=== PATIENT | male | born 1955 | race Caucasian/White ===

== ENCOUNTER 2021-07-04 08:53 | Emergency (ER) | payer OTHER, MEDICARE, MEDICAID ==
[~2021-07-04] VITALS: Ht 177.8 cm; Wt 150.0 kg
[~2021-07-04 08:53] MED LIST: ALBU6.7H9 INH
[2021-07-04] MEDS ORDERED: morphine 4 MG/ML inj SYRINge IM ONE (19:35)
[2021-07-04] MEDS ORDERED: ketorolac tromethamine 15mg/ml inj. IM ONE (19:35)
[2021-07-04] MEDS ORDERED: ondansetron 4mg rapidly disintigrating tab PO ONE (19:35)
[2021-07-04] MEDS ORDERED: normal saline 1000ML IV soln IVB ONE (19:55)
[2021-07-04] MEDS ORDERED: ondansetron/PF 4mg/2ml inj IV ONE (19:55)
[2021-07-04] MEDS ORDERED: HYDROcodone/acetaminophen 10/325mg tab PO ONE (20:00)
[2021-07-04] MEDS ORDERED: colchicine 0.6mg tablet PO ONE (20:00)
[2021-07-04 20:16] LABS: BASOPHILS # (AUTO) 0.1 X10'3 (0-0.2); BASOPHILS % (AUTO) 0.6 % (0-1); EOSINOPHILS # (AUTO) 0.2 X10'3 (0-0.9); EOSINOPHILS % (AUTO) 1.3 % (0-6); HEMATOCRIT 39.1 % (42.0-52.0); HEMOGLOBIN 13.2 g/dl (14.0-17.9); LYMPHOCYTES # (AUTO) 1.5 X10'3 (1.1-4.8); LYMPHOCYTES % (AUTO) 11.3 % (21-51); MEAN CORPUSCULAR HEMOGLOBIN 28.9 PG (27.0-31.0); MEAN CORPUSCULAR HGB CONC 33.9 g/dL (33.0-36.5); MEAN CORPUSCULAR VOLUME 85.4 FL (78-98); MONOCYTES % (AUTO) 7.4 % (2-12); NEUTROPHILS # (AUTO) 10.3 X10'3 (1.8-7.7); NEUTROPHILS % (AUTO) 79.4 % (42-75); PLATELET COUNT 437 X10'3 (140-440); RED BLOOD COUNT 4.58 X10'6 (4.70-6.10); RED CELL DISTRIBUTION WIDTH 13.8 % (11.5-14.5)
[2021-07-04 20:30] LABS: ALANINE AMINOTRANSFERASE 77 U/L (12-78); ALBUMIN/GLOBULIN RATIO 0.6 (1.1-1.5); ALKALINE PHOSPHATASE 99 IU/L (46-116); ANION GAP 9 (8-16); ASPARTATE AMINO TRANSFERASE 44 U/L (10-37); BILIRUBIN,TOTAL 0.9 MG/DL (0.1-1.0); BLOOD UREA NITROGEN 19 MG/DL (7-18); CALCIUM 9.1 MG/DL (8.5-10.1); CHLORIDE 106 MMOL/L (99-107); CREATININE 1.19 MG/DL (0.60-1.10); GLUCOSE 112 MG/DL (70-104); POTASSIUM 3.7 MMOL/L (3.5-5.1); SODIUM 144 MMOL/L (135-145); TOTAL CARBON DIOXIDE 29.3 MMOL/L (24-32); TOTAL PROTEIN 8.2 G/DL (6.4-8.2); eGFR 61 ML/MIN
[2021-07-04 20:44] LABS: UA COLLECTION TYPE URINAL
[2021-07-04 20:45] LABS: CLARITY,URINE SLIGHTLY CLOUDY (Clear); COLOR,URINE DARK YELLOW (Yellow); GLUCOSE, URINE NEGATIVE (Neg); KETONES,URINE NEGATIVE (Neg); LEUKOCYTE ESTERASE ,URINE NEGATIVE (Neg); NITRITES, URINE NEGATIVE (Neg); OCCULT BLOOD,URINE NEGATIVE (Neg); PROTEIN,URINE TRACE mg/dl (Neg)
[2021-07-04 20:47] LABS: HYALINE CASTS 0-3 /LPF (NEGATIVE); MUCUS STRANDS FEW /LPF (Neg); SQUAMOUS EPITHELIAL CELL,UR FEW /LPF (FEW)
[2021-07-04 20:48] LABS: BACTERIA,URINE FEW /HPF (Neg)
[2021-07-04] MEDS ORDERED: LIDOcaine 1% W/epiNEPHrine 1:200,000 10ml vial IJ ONE (21:05)
[2021-07-04] MEDS ORDERED: LIDOcaine 1% w/epiNEPHrine 1:200,000 30ml vial IJ ONE (21:10)
[2021-07-04] MEDS ORDERED: HYDR-3972 PO (22:20)
[2021-07-04 22:29] LABS: GLUCOSE,SYNOVIAL FLUID 85 MG/DL; TOTAL PROTEIN,SYNOVIAL FLUID 4.8 GM/DL
[2021-07-04 22:35] LABS: SYNOVIAL FLUID CRYSTALS QT FEW
[2021-07-04 22:36] LABS: CRYSTAL ID, SYN FLD URIC ACID
[2021-07-05 00:01] LABS: APPEARANCE,SYNOVIAL FLUID HAZY; COLOR,SYNOVIAL FLUID YELLOW; NEUTROPHILS,SYNOVIAL FLUID 76 % (0-25); SYN RBC 713 /CU MM (0); SYN WBC 3650 /CU MM (0-200)
[2021-07-05 00:02] LABS: LYMPHOCYTES,SYNOVIAL FLUID 13 % (0-75); MONOCYTES,SYNOVIAL FLUID 11 % (0-0)
[2021-07-05] MEDS ORDERED: dexamethasone sod phosphate 10mg/ml inj IV STA (06:14)
[2021-07-05 06:46] VITALS: BP 122/70
== END 2021-07-05 10:43 | disposition home or self-care (01) ==
LOC: ER 08:54
DX: M25.561 Pain in right knee (principal); M10.9 Gout, unspecified; Z79.899 Other long term (current) drug therapy
CPT/HCPCS: 20610; 36415; 73560; 73610; 80053; 81001; 82945; 84157; 85025; 85651; 86140; 87070; 87088; 89051; 89060; 96361; 96374; 99285; J1100; J7030

== ENCOUNTER 2024-07-26 13:28 | Inpatient (IN) | payer OTHER, MEDICAID ==
[~2024-07-26] VITALS: Ht 185.4 cm; Wt 180.0 kg
[2024-07-26 06:20] VITALS: BP 99/42; PULSE 82; RESP 16; TEMP 97.7; O2SAT 97
[~2024-07-26 13:28] MED LIST changes: +ALBU6.7H14 INH; -ALBU6.7H9 INH
[2024-07-26 13:57] LABS: BASOPHILS # (AUTO) 0.1 X10'3 (0-0.2); BASOPHILS % (AUTO) 0.3 % (0-1); EOSINOPHILS % (AUTO) 0.2 % (0-6); HEMATOCRIT 38.5 % (42.0-52.0); HEMOGLOBIN 12.8 g/dl (14.0-17.9); LYMPHOCYTES # (AUTO) 0.4 X10'3 (1.1-4.8); LYMPHOCYTES % (AUTO) 1.9 % (21-51); MEAN CORPUSCULAR HEMOGLOBIN 29.5 PG (27.0-31.0); MEAN CORPUSCULAR HGB CONC 33.3 g/dL (33.0-36.5); MEAN CORPUSCULAR VOLUME 88.7 FL (78-98); MEAN PLATELET VOLUME 6.9 FL (7.4-10.4); MONOCYTES # (AUTO) 0.6 X10'3 (0-0.9); MONOCYTES % (AUTO) 2.6 % (2-12); NEUTROPHILS # (AUTO) 20.4 X10'3 (1.8-7.7); PLATELET COUNT 314 X10'3 (140-440); RED BLOOD COUNT 4.34 X10'6 (4.70-6.10); RED CELL DISTRIBUTION WIDTH 14.9 % (11.5-14.5); WHITE BLOOD COUNT 21.5 X10'3 (4.5-11.0)
[2024-07-26 14:07] LABS: ALANINE AMINOTRANSFERASE 27 U/L (12-78); ALBUMIN 3.1 G/DL (3.4-5.0); ALBUMIN/GLOBULIN RATIO 0.8 (1.1-1.5); ALKALINE PHOSPHATASE 92 IU/L (46-116); ANION GAP 8 (8-16); ASPARTATE AMINO TRANSFERASE 21 U/L (10-37); BILIRUBIN,TOTAL 0.7 MG/DL (0.1-1.0); BLOOD UREA NITROGEN 20 MG/DL (7-18); BUN/CREATININE RATIO 14.7 (10.0-20.0); CALCIUM 8.1 MG/DL (8.5-10.1); CHLORIDE 106 MMOL/L (99-107); CREATININE 1.36 MG/DL (0.60-1.10); GLUCOSE 143 MG/DL (70-104); POTASSIUM 3.8 MMOL/L (3.5-5.1); SODIUM 138 MMOL/L (135-145); TOTAL CARBON DIOXIDE 24.2 MMOL/L (24-32); TOTAL PROTEIN 7.1 G/DL (6.4-8.2); eCRCL 56 ML/MIN; eGFR 52 ML/MIN
[2024-07-26 14:14] LABS: PRO BRAIN NATRIURETIC PEPTIDE 859 PG/ML (0-125)
[2024-07-26] MEDS: normal saline 1000ml 1,000 ML IV ONE (14:46)
[2024-07-26] MEDS: acetaminophen 1,000mg/100ml IV 100 ML IV ONE (14:47)
[2024-07-26 15:35] LABS: BILIRUBIN,URINE NEGATIVE (Neg); CLARITY,URINE CLEAR (Clear); COLOR,URINE YELLOW (Yellow); GLUCOSE, URINE NEGATIVE (Neg); KETONES,URINE NEGATIVE (Neg); LEUKOCYTE ESTERASE ,URINE NEGATIVE (Neg); NITRITES, URINE NEGATIVE (Neg); OCCULT BLOOD,URINE TRACE-INTACT (Neg); PH,URINE 5.5 (4.8-8.0); PROTEIN,URINE 100 mg/dl (Neg); UROBILINOGEN,URINE 0.2 E.U/dL (0.2-1.0)
[2024-07-26 15:38] LABS: URINE AMPHETAMINE SCREEN NEGATIVE (Neg); URINE BARBITUATE SCREEN NEGATIVE (Neg); URINE BENZODIAZEPINES SCREEN NEGATIVE (Neg); URINE CANNABINOID SCREEN POSITIVE (Neg); URINE COCAINE SCREEN NEGATIVE (Neg); URINE METHADONE SCREEN NEGATIVE (Neg); URINE OPIATE SCREEN NEGATIVE (Neg); URINE PHENCYCLIDINE SCREEN NEGATIVE (Neg)
[2024-07-26 15:40] LABS: UA COLLECTION TYPE OTHER
[2024-07-26 15:42] LABS: BACTERIA,URINE FEW /HPF (Neg); SQUAMOUS EPITHELIAL CELL,UR FEW /LPF (FEW); WBC,URINE 0-4 /HPF (0-4)
[2024-07-26 15:43] LABS: FINE GRANULAR CAST 0-3 /LPF (NEGATIVE); TRANSITIONAL EPI CELLS,URINE FEW /HPF
[2024-07-26] MEDS ORDERED: HYDR-3972 (15:44)
[2024-07-26] MEDS ORDERED: acetaminophen 325mg tablet PO PRN (16:20)
[2024-07-26] MEDS ORDERED: magnesium sulf-water 2g/50mL 50 ML IV PRN (16:20)
[2024-07-26] MEDS ORDERED: morphine 2 MG/ML inj. syringe IV PRN ×2 (16:20)
[2024-07-26] MEDS ORDERED: mag hydrox/Alum hydrox/simeth 30ml oral suspension PO PRN (16:20)
[2024-07-26] MEDS ORDERED: heparin 10,000 units/1 ML INJ IV ONE (16:20)
[2024-07-26] MEDS ORDERED: potassium Cl 20 mEq SR tablet PO PRN ×2 (16:20)
[2024-07-26] MEDS ORDERED: potassium Cl 40MEQ/1/2NS 520ml 520 ML IV PRN (16:20)
[2024-07-26] MEDS ORDERED: magnesium sulf-water 4G/100mL 100 ML IV PRN (16:20)
[2024-07-26] MEDS: aspirin 81mg tab.chew PO ONE (16:34)
[2024-07-26] MEDS: CefTRIAXone 2gm/D5W 50ml BAG 50 ML IV ONE (16:34)
[2024-07-26 16:37] LABS: APTT 28 SECONDS (22-32); INR 1.1 INR; PROTHROMBIN TIME 11.9 SECONDS (9.0-12.0)
[2024-07-26] MEDS: heparin 25,000 UNIT/250ml bag 250 ML IV PRN (16:47)
[2024-07-26] MEDS: heparin 10,000 units/1 ML INJ IV ONE (16:50)
[2024-07-26] MEDS: HEPARIN DRIP-CARDIAC**PHARMACIST-TO-DOSE IV ONE (17:15)
[2024-07-26] MEDS: MESSAGE TO NURSING IV ONE ×2 (17:15→22:25)
[2024-07-26] MEDS: atorvastatin 20mg tablet PO SCH (17:21)
[2024-07-26] MEDS ORDERED: metoprolol tartrate 1mg/ml inj IV PRN (18:15)
[2024-07-26] MEDS ORDERED: nitroGLYCERIN 0.4mg SUBLingual tab SL PRN ×2 (18:15→22:20)
[2024-07-26] MEDS ORDERED: aminophylline 250mg/10ml inj. IV PRN (18:15)
[2024-07-26 19:01] LABS: D-DIMER 3.52 MG/L FEU (0-0.50)
[2024-07-26] MEDS ORDERED: iohexol 350MG/ML 100ml bottle IV ONE (19:24)
[2024-07-26 20:00] VITALS: RESP 16; O2SAT 97
[2024-07-26] MEDS: K and/or MAG REPLACEMENT MC SCH (20:00)
[2024-07-26] MEDS: docusate sod 100mg capsule PO SCH (20:00)
[2024-07-26 20:46] VITALS: PULSE 82; RESP 18; O2SAT 97
[2024-07-26] MEDS: HYDROcodone/acetaminophen 10/325mg tab PO PRN (20:54)
[2024-07-26] MEDS: normal saline 1000ml 1,000 ML IV SCH (20:55)
[2024-07-26] MEDS: VANCOMYCIN 2GM/400ML H20 (PEG) 400 ML IV ONE (21:02)
[2024-07-26 21:14] VITALS: PULSE 79; RESP 21; O2SAT 99
[2024-07-26 22:00] VITALS: BP 95/48; PULSE 74; RESP 16; TEMP 99.4; O2SAT 95
[2024-07-26] MEDS: heparin 10,000 units/1 ML INJ IV PRN (22:28)
[2024-07-27] VITALS (23 sets, daily range): BP systolic 88–116; BP diastolic 45–65; PULSE 59–88; RESP 8–24; TEMP 97.5–98.4; O2SAT 92–99
[2024-07-27] MEDS ORDERED: FURO40TA4 PO (02:24)
[2024-07-27] MEDS ORDERED: NAPR-56 PO (02:29)
[2024-07-27] MEDS ORDERED: POTA-192 PO (02:30)
[2024-07-27] MEDS ORDERED: POTA-207 PO (02:35)
[2024-07-27] MEDS: VANCOMYCIN 1GM 200ML H20 (PEG) 200 ML IV SCH (03:20)
[2024-07-27 05:01] LABS: MAGNESIUM 1.7 MG/DL (1.5-2.4); POTASSIUM 4.6 MMOL/L (3.5-5.1)
[2024-07-27] MEDS: MESSAGE TO NURSING IV ONE ×3 (05:14→20:10)
[2024-07-27 07:37] LABS: BASOPHILS # (AUTO) 0.1 X10'3 (0-0.2); BASOPHILS % (AUTO) 0.3 % (0-1); EOSINOPHILS % (AUTO) 0 % (0-6); HEMATOCRIT 35.6 % (42.0-52.0); HEMOGLOBIN 11.6 g/dl (14.0-17.9); LYMPHOCYTES # (AUTO) 0.5 X10'3 (1.1-4.8); LYMPHOCYTES % (AUTO) 1.5 % (21-51); MEAN CORPUSCULAR HEMOGLOBIN 29.4 PG (27.0-31.0); MEAN CORPUSCULAR HGB CONC 32.6 g/dL (33.0-36.5); MEAN CORPUSCULAR VOLUME 89.9 FL (78-98); MEAN PLATELET VOLUME 7.6 FL (7.4-10.4); MONOCYTES # (AUTO) 0.7 X10'3 (0-0.9); MONOCYTES % (AUTO) 2.3 % (2-12); NEUTROPHILS # (AUTO) 30.7 X10'3 (1.8-7.7); NEUTROPHILS % (AUTO) 95.9 % (42-75); PLATELET COUNT 296 X10'3 (140-440); RED BLOOD COUNT 3.96 X10'6 (4.70-6.10); RED CELL DISTRIBUTION WIDTH 15.2 % (11.5-14.5)
[2024-07-27 07:57] LABS: ALANINE AMINOTRANSFERASE 46 U/L (12-78); ALBUMIN 2.5 G/DL (3.4-5.0); ALBUMIN/GLOBULIN RATIO 0.7 (1.1-1.5); ALKALINE PHOSPHATASE 85 IU/L (46-116); ANION GAP 7 (8-16); ASPARTATE AMINO TRANSFERASE 133 U/L (10-37); BILIRUBIN,TOTAL 0.8 MG/DL (0.1-1.0); BLOOD UREA NITROGEN 26 MG/DL (7-18); BUN/CREATININE RATIO 15.7 (10.0-20.0); CALCIUM 7.6 MG/DL (8.5-10.1); CHLORIDE 106 MMOL/L (99-107); CREATININE 1.66 MG/DL (0.60-1.10); GLUCOSE 124 MG/DL (70-104); POTASSIUM 4.2 MMOL/L (3.5-5.1); SODIUM 138 MMOL/L (135-145); TOTAL CARBON DIOXIDE 24.6 MMOL/L (24-32); TOTAL PROTEIN 6.3 G/DL (6.4-8.2); eCRCL 46 ML/MIN; eGFR 41 ML/MIN
[2024-07-27] MEDS: CefTRIAXone 2gm/D5W 50ml BAG 50 ML IV SCH (08:01)
[2024-07-27] MEDS: HYDROcodone/acetaminophen 5mg/325mg tablet PO PRN (08:22)
[2024-07-27 09:00] LABS: PLATELET ESTIMATE NORMAL; TOTAL CELLS COUNTED 100
[2024-07-27] MEDS: regadenoson 0.4mg/5ml syringe IV PRN (09:11)
[2024-07-27] MEDS: metoprolol succinate 25mg (24-HOUR) SR. Tablet PO SCH (16:52)
[2024-07-27] MEDS: VANCOMYCIN LEVEL IV ONE (18:30)
[2024-07-28] VITALS (11 sets, daily range): BP systolic 110–154; BP diastolic 48–80; PULSE 56–97; RESP 15–23; TEMP 96.9–98.4; O2SAT 93–98
[2024-07-28 02:27] LABS: BASOPHILS % (AUTO) 0.1 % (0-1); EOSINOPHILS % (AUTO) 0.2 % (0-6); HEMATOCRIT 36.5 % (42.0-52.0); HEMOGLOBIN 11.9 g/dl (14.0-17.9); LYMPHOCYTES # (AUTO) 0.8 X10'3 (1.1-4.8); LYMPHOCYTES % (AUTO) 3.4 % (21-51); MEAN CORPUSCULAR HEMOGLOBIN 28.9 PG (27.0-31.0); MEAN CORPUSCULAR HGB CONC 32.6 g/dL (33.0-36.5); MEAN CORPUSCULAR VOLUME 88.7 FL (78-98); MEAN PLATELET VOLUME 7.6 FL (7.4-10.4); MONOCYTES # (AUTO) 0.9 X10'3 (0-0.9); MONOCYTES % (AUTO) 3.9 % (2-12); NEUTROPHILS # (AUTO) 21.9 X10'3 (1.8-7.7); NEUTROPHILS % (AUTO) 92.4 % (42-75); PLATELET COUNT 311 X10'3 (140-440); RED BLOOD COUNT 4.11 X10'6 (4.70-6.10); RED CELL DISTRIBUTION WIDTH 15.4 % (11.5-14.5); WHITE BLOOD COUNT 23.7 X10'3 (4.5-11.0)
[2024-07-28 02:38] LABS: MAGNESIUM 1.8 MG/DL (1.5-2.4); POTASSIUM 4.1 MMOL/L (3.5-5.1)
[2024-07-28] MEDS: MESSAGE TO NURSING IV ONE ×5 (02:55→21:20)
[2024-07-28] MEDS: ondansetron/PF 4mg/2ml inj IV PRN (03:54)
[2024-07-28] MEDS: metoclopramide 5 mg/ml inj IV ONE (05:48)
[2024-07-28 08:52] LABS: ALANINE AMINOTRANSFERASE 62 U/L (12-78); ALBUMIN 2.4 G/DL (3.4-5.0); ALBUMIN/GLOBULIN RATIO 0.6 (1.1-1.5); ALKALINE PHOSPHATASE 90 IU/L (46-116); ANION GAP 11 (8-16); ASPARTATE AMINO TRANSFERASE 156 U/L (10-37); BILIRUBIN,TOTAL 0.7 MG/DL (0.1-1.0); BLOOD UREA NITROGEN 27 MG/DL (7-18); CALCIUM 7.9 MG/DL (8.5-10.1); CHLORIDE 107 MMOL/L (99-107); GLUCOSE 122 MG/DL (70-104); SODIUM 140 MMOL/L (135-145); TOTAL CARBON DIOXIDE 22.3 MMOL/L (24-32); TOTAL PROTEIN 6.5 G/DL (6.4-8.2); eCRCL 51 ML/MIN; eGFR 46 ML/MIN
[2024-07-28] MEDS: ondansetron/PF 4mg/2ml inj IV ONE (15:23)
[2024-07-28 19:55] LABS: OSMOLALITY 296.5 MOSM/K (280-300)
[2024-07-28 20:06] LABS: C-REACTIVE PROTEIN 22.96 MG/DL (0.0-0.5)
[2024-07-28 20:30] LABS: THYROID STIMULATING HORMONE 1.92 ulU/ml (0.34-4.50)
[2024-07-28] MEDS: ondansetron inj. 24 MG in normal saline 250ml IV soln 228 ML IV SCH (22:10)
[2024-07-29] VITALS (13 sets, daily range): BP systolic 114–151; BP diastolic 53–76; PULSE 61–126; RESP 11–18; TEMP 97.5–99.3; O2SAT 92–100
[2024-07-29] MEDS: metoprolol tartrate 25mg tablet PO ONE (01:44)
[2024-07-29 02:59] LABS: BASOPHILS % (AUTO) 0.1 % (0-1); EOSINOPHILS # (AUTO) 0.1 X10'3 (0-0.9); EOSINOPHILS % (AUTO) 0.4 % (0-6); HEMATOCRIT 32.9 % (42.0-52.0); HEMOGLOBIN 10.9 g/dl (14.0-17.9); LYMPHOCYTES # (AUTO) 0.8 X10'3 (1.1-4.8); LYMPHOCYTES % (AUTO) 3.2 % (21-51); MEAN CORPUSCULAR HEMOGLOBIN 29.2 PG (27.0-31.0); MEAN CORPUSCULAR HGB CONC 33.2 g/dL (33.0-36.5); MEAN CORPUSCULAR VOLUME 87.9 FL (78-98); MEAN PLATELET VOLUME 7.4 FL (7.4-10.4); MONOCYTES # (AUTO) 1.3 X10'3 (0-0.9); MONOCYTES % (AUTO) 5.1 % (2-12); NEUTROPHILS % (AUTO) 91.2 % (42-75); PLATELET COUNT 265 X10'3 (140-440); RED BLOOD COUNT 3.75 X10'6 (4.70-6.10)
[2024-07-29 03:01] LABS: WHITE BLOOD COUNT 25.3 X10'3 (4.5-11.0)
[2024-07-29 03:15] LABS: ALANINE AMINOTRANSFERASE 52 U/L (12-78); ALBUMIN 1.9 G/DL (3.4-5.0); ALBUMIN/GLOBULIN RATIO 0.5 (1.1-1.5); ALKALINE PHOSPHATASE 92 IU/L (46-116); ANION GAP 8 (8-16); ASPARTATE AMINO TRANSFERASE 101 U/L (10-37); BILIRUBIN,TOTAL 0.5 MG/DL (0.1-1.0); BLOOD UREA NITROGEN 22 MG/DL (7-18); BUN/CREATININE RATIO 16.2 (10.0-20.0); CALCIUM 8.2 MG/DL (8.5-10.1); CHLORIDE 109 MMOL/L (99-107); CREATININE 1.36 MG/DL (0.60-1.10); GLUCOSE 106 MG/DL (70-104); MAGNESIUM 1.8 MG/DL (1.5-2.4); POTASSIUM 3.8 MMOL/L (3.5-5.1); SODIUM 140 MMOL/L (135-145); TOTAL CARBON DIOXIDE 23.3 MMOL/L (24-32); TOTAL CELLS COUNTED 100; TOTAL PROTEIN 5.8 G/DL (6.4-8.2); eCRCL 56 ML/MIN; eGFR 52 ML/MIN
[2024-07-29] MEDS: MESSAGE TO NURSING IV ONE ×3 (03:20→20:47)
[2024-07-29] MEDS: ipratropium 0.5 MG/2.5ML nebule IH PRN (09:36)
[2024-07-29] MEDS: cefazolin 2gm/D5W 100mL 100 ML IV SCH (10:58)
[2024-07-29] MEDS: clindamycin-Cleocin 900mg/D5W 50 ML IV SCH (11:25)
[2024-07-29] MEDS: ceFAZolin 2gm in dextrose, iso 50 ML IV SCH (16:44)
[2024-07-30] VITALS (10 sets, daily range): BP systolic 110–148; BP diastolic 49–78; PULSE 73–93; RESP 9–20; TEMP 97.3–99.8; O2SAT 93–100
[2024-07-30 02:36] LABS: BASOPHILS % (AUTO) 0.1 % (0-1); EOSINOPHILS # (AUTO) 0.1 X10'3 (0-0.9); EOSINOPHILS % (AUTO) 0.3 % (0-6); HEMATOCRIT 30.5 % (42.0-52.0); LYMPHOCYTES # (AUTO) 1.1 X10'3 (1.1-4.8); LYMPHOCYTES % (AUTO) 3.8 % (21-51); MEAN CORPUSCULAR HEMOGLOBIN 28.9 PG (27.0-31.0); MEAN CORPUSCULAR HGB CONC 32.7 g/dL (33.0-36.5); MEAN CORPUSCULAR VOLUME 88.2 FL (78-98); MEAN PLATELET VOLUME 7.6 FL (7.4-10.4); MONOCYTES # (AUTO) 1.8 X10'3 (0-0.9); MONOCYTES % (AUTO) 6.1 % (2-12); NEUTROPHILS # (AUTO) 25.8 X10'3 (1.8-7.7); NEUTROPHILS % (AUTO) 89.7 % (42-75); PLATELET COUNT 259 X10'3 (140-440); RED BLOOD COUNT 3.46 X10'6 (4.70-6.10); RED CELL DISTRIBUTION WIDTH 15.1 % (11.5-14.5)
[2024-07-30 02:45] LABS: WHITE BLOOD COUNT 28.7 X10'3 (4.5-11.0)
[2024-07-30 02:49] LABS: ALANINE AMINOTRANSFERASE 42 U/L (12-78); ALBUMIN 1.8 G/DL (3.4-5.0); ALBUMIN/GLOBULIN RATIO 0.5 (1.1-1.5); ALKALINE PHOSPHATASE 99 IU/L (46-116); ANION GAP 10 (8-16); ASPARTATE AMINO TRANSFERASE 82 U/L (10-37); BILIRUBIN,TOTAL 0.4 MG/DL (0.1-1.0); BLOOD UREA NITROGEN 22 MG/DL (7-18); BUN/CREATININE RATIO 8.1 (10.0-20.0); CALCIUM 7.5 MG/DL (8.5-10.1); CHLORIDE 101 MMOL/L (99-107); CREATININE 2.71 MG/DL (0.60-1.10); GLUCOSE 254 MG/DL (70-104); MAGNESIUM 1.7 MG/DL (1.5-2.4); POTASSIUM 3.7 MMOL/L (3.5-5.1); SODIUM 137 MMOL/L (135-145); TOTAL CARBON DIOXIDE 26.3 MMOL/L (24-32); TOTAL PROTEIN 5.7 G/DL (6.4-8.2); eCRCL 28 ML/MIN; eGFR 23 ML/MIN
[2024-07-30] MEDS: MESSAGE TO NURSING IV ONE ×4 (03:34→23:38)
[2024-07-30 07:25] LABS: PLATELET ESTIMATE NORMAL; TOTAL CELLS COUNTED 100
[2024-07-30 07:26] LABS: ANISOCYTOSIS FEW; POLYCHROMASIA 1+
[2024-07-30] MEDS ORDERED: ondansetron inj. 24 MG in normal saline 250ml IV soln 228 ML IV PRN (10:12)
[2024-07-30] MEDS: lactose-reduced food (Ensure Enlive) - 237ml bottle PO SCH (18:00)
[2024-07-30] MEDS: ceFAZolin 2gm in dextrose, iso 50 ML IV SCH (20:00)
[2024-07-31] VITALS (10 sets, daily range): BP systolic 109–152; BP diastolic 39–75; PULSE 75–88; RESP 14–22; TEMP 97.1–98.8; O2SAT 92–98
[2024-07-31 06:33] LABS: BASOPHILS # (AUTO) 0.1 X10'3 (0-0.2); BASOPHILS % (AUTO) 0.2 % (0-1); EOSINOPHILS # (AUTO) 0.3 X10'3 (0-0.9); HEMATOCRIT 30.7 % (42.0-52.0); HEMOGLOBIN 10.2 g/dl (14.0-17.9); LYMPHOCYTES # (AUTO) 1.4 X10'3 (1.1-4.8); LYMPHOCYTES % (AUTO) 4.4 % (21-51); MEAN CORPUSCULAR HEMOGLOBIN 29.1 PG (27.0-31.0); MEAN CORPUSCULAR HGB CONC 33.2 g/dL (33.0-36.5); MEAN CORPUSCULAR VOLUME 87.7 FL (78-98); MEAN PLATELET VOLUME 8.1 FL (7.4-10.4); MONOCYTES # (AUTO) 2.1 X10'3 (0-0.9); MONOCYTES % (AUTO) 6.9 % (2-12); NEUTROPHILS # (AUTO) 26.9 X10'3 (1.8-7.7); NEUTROPHILS % (AUTO) 87.5 % (42-75); PLATELET COUNT 307 X10'3 (140-440); RED BLOOD COUNT 3.51 X10'6 (4.70-6.10)
[2024-07-31 06:36] LABS: ALANINE AMINOTRANSFERASE 43 U/L (12-78); ALBUMIN 1.8 G/DL (3.4-5.0); ALBUMIN/GLOBULIN RATIO 0.4 (1.1-1.5); ALKALINE PHOSPHATASE 126 IU/L (46-116); ANION GAP 7 (8-16); ASPARTATE AMINO TRANSFERASE 91 U/L (10-37); BILIRUBIN,TOTAL 0.5 MG/DL (0.1-1.0); BLOOD UREA NITROGEN 30 MG/DL (7-18); BUN/CREATININE RATIO 14.4 (10.0-20.0); CALCIUM 8.1 MG/DL (8.5-10.1); CHLORIDE 109 MMOL/L (99-107); CREATININE 2.09 MG/DL (0.60-1.10); GLUCOSE 106 MG/DL (70-104); POTASSIUM 4.1 MMOL/L (3.5-5.1); SODIUM 142 MMOL/L (135-145); TOTAL CARBON DIOXIDE 26.5 MMOL/L (24-32); TOTAL PROTEIN 6.1 G/DL (6.4-8.2); eCRCL 37 ML/MIN; eGFR 31 ML/MIN
[2024-07-31 06:41] LABS: WHITE BLOOD COUNT 30.7 X10'3 (4.5-11.0)
[2024-07-31 07:20] LABS: ANISOCYTOSIS FEW; PLATELET ESTIMATE NORMAL; POLYCHROMASIA FEW; TOTAL CELLS COUNTED 100
[2024-07-31] MEDS: MESSAGE TO NURSING IV ONE (07:29)
[2024-07-31] MEDS: ringers solution, lacted 1,000 ML IV SCH (17:45)
[2024-07-31] MEDS: PERFLUTREN PROTEIN-A MICROSPHR (Optison) 0.22 MG/ML 3ML VIAL IV ONE (19:11)
[2024-08-01] VITALS (10 sets, daily range): BP systolic 106–164; BP diastolic 42–83; PULSE 66–84; RESP 16–22; TEMP 97.8–100.5; O2SAT 91–99
[2024-08-01 06:52] LABS: BASOPHILS % (AUTO) 0.1 % (0-1); EOSINOPHILS # (AUTO) 0.5 X10'3 (0-0.9); EOSINOPHILS % (AUTO) 1.7 % (0-6); HEMATOCRIT 30.8 % (42.0-52.0); HEMOGLOBIN 10.6 g/dl (14.0-17.9); LYMPHOCYTES # (AUTO) 1.5 X10'3 (1.1-4.8); LYMPHOCYTES % (AUTO) 5.4 % (21-51); MEAN CORPUSCULAR HEMOGLOBIN 30.2 PG (27.0-31.0); MEAN CORPUSCULAR HGB CONC 34.5 g/dL (33.0-36.5); MEAN CORPUSCULAR VOLUME 87.5 FL (78-98); MEAN PLATELET VOLUME 8.1 FL (7.4-10.4); MONOCYTES # (AUTO) 2.3 X10'3 (0-0.9); MONOCYTES % (AUTO) 8.4 % (2-12); NEUTROPHILS % (AUTO) 84.4 % (42-75); PLATELET COUNT 358 X10'3 (140-440); RED BLOOD COUNT 3.52 X10'6 (4.70-6.10); RED CELL DISTRIBUTION WIDTH 15.1 % (11.5-14.5)
[2024-08-01 06:59] LABS: WHITE BLOOD COUNT 27.2 X10'3 (4.5-11.0)
[2024-08-01 07:12] LABS: ALANINE AMINOTRANSFERASE 48 U/L (12-78); ALBUMIN 1.8 G/DL (3.4-5.0); ALBUMIN/GLOBULIN RATIO 0.4 (1.1-1.5); ALKALINE PHOSPHATASE 153 IU/L (46-116); ANION GAP 8 (8-16); ASPARTATE AMINO TRANSFERASE 114 U/L (10-37); BILIRUBIN,TOTAL 0.5 MG/DL (0.1-1.0); BLOOD UREA NITROGEN 35 MG/DL (7-18); BUN/CREATININE RATIO 19.1 (10.0-20.0); CALCIUM 8.3 MG/DL (8.5-10.1); CHLORIDE 107 MMOL/L (99-107); CREATININE 1.83 MG/DL (0.60-1.10); GLUCOSE 108 MG/DL (70-104); POTASSIUM 4.1 MMOL/L (3.5-5.1); SODIUM 141 MMOL/L (135-145); TOTAL CARBON DIOXIDE 25.6 MMOL/L (24-32); TOTAL PROTEIN 6.6 G/DL (6.4-8.2); eCRCL 42 ML/MIN; eGFR 37 ML/MIN
[2024-08-01 08:02] LABS: ANISOCYTOSIS 1+; PLATELET ESTIMATE NORMAL; TOTAL CELLS COUNTED 100
[2024-08-02] VITALS (11 sets, daily range): BP systolic 93–134; BP diastolic 36–79; PULSE 80–91; RESP 12–22; TEMP 96.4–98.5; O2SAT 90–94
[2024-08-02 08:10] LABS: ANTISTREPTOLYSIN O AB 116.5 IU/mL (0.0-200.0)
[2024-08-02 08:56] LABS: BASOPHILS # (AUTO) 0.1 X10'3 (0-0.2); BASOPHILS % (AUTO) 0.2 % (0-1); EOSINOPHILS # (AUTO) 0.3 X10'3 (0-0.9); HEMATOCRIT 32.1 % (42.0-52.0); HEMOGLOBIN 10.4 g/dl (14.0-17.9); LYMPHOCYTES # (AUTO) 1.5 X10'3 (1.1-4.8); LYMPHOCYTES % (AUTO) 5.5 % (21-51); MEAN CORPUSCULAR HEMOGLOBIN 28.5 PG (27.0-31.0); MEAN CORPUSCULAR HGB CONC 32.5 g/dL (33.0-36.5); MEAN CORPUSCULAR VOLUME 87.7 FL (78-98); MEAN PLATELET VOLUME 7.3 FL (7.4-10.4); NEUTROPHILS # (AUTO) 22.4 X10'3 (1.8-7.7); NEUTROPHILS % (AUTO) 82.3 % (42-75); PLATELET COUNT 386 X10'3 (140-440); RED BLOOD COUNT 3.66 X10'6 (4.70-6.10); RED CELL DISTRIBUTION WIDTH 15.3 % (11.5-14.5)
[2024-08-02 09:06] LABS: WHITE BLOOD COUNT 27.2 X10'3 (4.5-11.0)
[2024-08-02 09:12] LABS: ALANINE AMINOTRANSFERASE 43 U/L (12-78); ALBUMIN 1.8 G/DL (3.4-5.0); ALBUMIN/GLOBULIN RATIO 0.4 (1.1-1.5); ALKALINE PHOSPHATASE 148 IU/L (46-116); ANION GAP 7 (8-16); ASPARTATE AMINO TRANSFERASE 127 U/L (10-37); BILIRUBIN,TOTAL 0.7 MG/DL (0.1-1.0); BLOOD UREA NITROGEN 36 MG/DL (7-18); BUN/CREATININE RATIO 19.9 (10.0-20.0); CALCIUM 8.3 MG/DL (8.5-10.1); CHLORIDE 106 MMOL/L (99-107); CREATININE 1.81 MG/DL (0.60-1.10); GLUCOSE 116 MG/DL (70-104); POTASSIUM 4.4 MMOL/L (3.5-5.1); SODIUM 138 MMOL/L (135-145); TOTAL CARBON DIOXIDE 25.1 MMOL/L (24-32); TOTAL PROTEIN 6.6 G/DL (6.4-8.2); eCRCL 42 ML/MIN; eGFR 37 ML/MIN
[2024-08-02 09:29] LABS: TOTAL CELLS COUNTED 100
[2024-08-02 09:30] LABS: PLATELET ESTIMATE NORMAL
[2024-08-02] MEDS: morphine 2 MG/ML inj. syringe IV PRN (12:21)
[2024-08-02 16:34] LABS: ABG BASE EXCESS -1.9 mmol/L (-2.0-3.0); ABG HCO3 24.3 mmol/L (21.0-28.0); ABG OXYGEN SATURATION 95.6 % (94.0-98.0); ABG PO2 (T) 78.2 mmHg (83.0-108.0); ALLEN'S TEST POSITIVE; FCOHb 0.6 % (0.5-1.5); FHHb 4.4 % (0.0-5.0); FLOW 3 L/min; FMetHb 0.3 % (0.0-1.5); FO2Hb 94.7 % (94.0-98.0); MODE NASAL CANNULA; PATIENT TEMPERATURE 36.8; TOTAL HEMOGLOBIN 11.6 G/dl (13.5-17.5)
[2024-08-03] VITALS (14 sets, daily range): BP systolic 120–159; BP diastolic 54–79; PULSE 65–98; RESP 12–22; TEMP 97.1–98.2; O2SAT 90–98
[2024-08-03] MEDS: haloperidol lactate 5mg/ml inj IM ONE ×2 (01:58→04:04)
[2024-08-03 03:19] LABS: ABG BASE EXCESS -0.1 mmol/L (-2.0-3.0); ABG HCO3 24.1 mmol/L (21.0-28.0); ABG OXYGEN SATURATION 89.4 % (94.0-98.0); ABG PCO2 (T) 37.5 mmHg (35.0-48.0); ABG PH (T) 7.425 (7.350-7.450); ABG PO2 (T) 53.4 mmHg (83.0-108.0); ALLEN'S TEST Modified; FCOHb 0.8 % (0.5-1.5); FHHb 10.5 % (0.0-5.0); FMetHb 0.3 % (0.0-1.5); FO2Hb 88.4 % (94.0-98.0); MODE ROOM AIR; TOTAL HEMOGLOBIN 11.7 G/dl (13.5-17.5)
[2024-08-03 08:30] LABS: BASOPHILS # (AUTO) 0.1 X10'3 (0-0.2); BASOPHILS % (AUTO) 0.2 % (0-1); EOSINOPHILS # (AUTO) 0.1 X10'3 (0-0.9); EOSINOPHILS % (AUTO) 0.3 % (0-6); HEMATOCRIT 31.7 % (42.0-52.0); HEMOGLOBIN 10.1 g/dl (14.0-17.9); LYMPHOCYTES # (AUTO) 1.4 X10'3 (1.1-4.8); LYMPHOCYTES % (AUTO) 4.3 % (21-51); MEAN CORPUSCULAR HGB CONC 31.9 g/dL (33.0-36.5); MEAN CORPUSCULAR VOLUME 87.8 FL (78-98); MEAN PLATELET VOLUME 7.8 FL (7.4-10.4); MONOCYTES # (AUTO) 3.3 X10'3 (0-0.9); NEUTROPHILS # (AUTO) 27.6 X10'3 (1.8-7.7); NEUTROPHILS % (AUTO) 85.2 % (42-75); PLATELET COUNT 426 X10'3 (140-440); RED BLOOD COUNT 3.61 X10'6 (4.70-6.10); RED CELL DISTRIBUTION WIDTH 15.3 % (11.5-14.5)
[2024-08-03 08:41] LABS: WHITE BLOOD COUNT 32.5 X10'3 (4.5-11.0)
[2024-08-03 08:56] LABS: ALANINE AMINOTRANSFERASE 36 U/L (12-78); ALBUMIN 1.7 G/DL (3.4-5.0); ALBUMIN/GLOBULIN RATIO 0.3 (1.1-1.5); ALKALINE PHOSPHATASE 149 IU/L (46-116); ANION GAP 6 (8-16); ASPARTATE AMINO TRANSFERASE 119 U/L (10-37); BILIRUBIN,TOTAL 0.8 MG/DL (0.1-1.0); BLOOD UREA NITROGEN 41 MG/DL (7-18); BUN/CREATININE RATIO 19.1 (10.0-20.0); CALCIUM 7.9 MG/DL (8.5-10.1); CHLORIDE 106 MMOL/L (99-107); CREATININE 2.15 MG/DL (0.60-1.10); GLUCOSE 122 MG/DL (70-104); POTASSIUM 4.8 MMOL/L (3.5-5.1); SODIUM 139 MMOL/L (135-145); TOTAL CARBON DIOXIDE 26.6 MMOL/L (24-32); eCRCL 36 ML/MIN; eGFR 30 ML/MIN
[2024-08-03 10:00] LABS: TOTAL CELLS COUNTED 100
[2024-08-03 10:01] LABS: PLATELET ESTIMATE NORMAL
[2024-08-03] MEDS: methylPREDNISolone sod succ 125mg/2ml vial IV ONE (10:57)
[2024-08-03] MEDS: aspirin 81mg, enteric-coated 1 TAB TABLET.DR PO SCH (14:59)
[2024-08-03] MEDS: apixaban 5mg tablet PO SCH (15:18)
[2024-08-04] VITALS (11 sets, daily range): BP systolic 124–144; BP diastolic 62–87; PULSE 62–82; RESP 16–20; TEMP 96.9–99.6; O2SAT 92–99
[2024-08-04] MEDS: magnesium hydroxide 30ml (MOM) UD suspension PO PRN (04:33)
[2024-08-04 07:01] LABS: BASOPHILS # (AUTO) 0.1 X10'3 (0-0.2); BASOPHILS % (AUTO) 0.2 % (0-1); EOSINOPHILS % (AUTO) 0 % (0-6); HEMATOCRIT 31.3 % (42.0-52.0); HEMOGLOBIN 10.2 g/dl (14.0-17.9); LYMPHOCYTES % (AUTO) 2.5 % (21-51); MEAN CORPUSCULAR HEMOGLOBIN 28.6 PG (27.0-31.0); MEAN CORPUSCULAR HGB CONC 32.7 g/dL (33.0-36.5); MEAN CORPUSCULAR VOLUME 87.7 FL (78-98); MEAN PLATELET VOLUME 7.7 FL (7.4-10.4); MONOCYTES # (AUTO) 2.7 X10'3 (0-0.9); MONOCYTES % (AUTO) 6.8 % (2-12); NEUTROPHILS # (AUTO) 35.9 X10'3 (1.8-7.7); NEUTROPHILS % (AUTO) 90.5 % (42-75); PLATELET COUNT 432 X10'3 (140-440); RED BLOOD COUNT 3.57 X10'6 (4.70-6.10); RED CELL DISTRIBUTION WIDTH 15.1 % (11.5-14.5)
[2024-08-04 07:05] LABS: WHITE BLOOD COUNT 39.6 X10'3 (4.5-11.0)
[2024-08-04 07:20] LABS: ALANINE AMINOTRANSFERASE 31 U/L (12-78); ALBUMIN 1.6 G/DL (3.4-5.0); ALBUMIN/GLOBULIN RATIO 0.3 (1.1-1.5); ALKALINE PHOSPHATASE 138 IU/L (46-116); ANION GAP 7 (8-16); ASPARTATE AMINO TRANSFERASE 100 U/L (10-37); BILIRUBIN,TOTAL 0.5 MG/DL (0.1-1.0); BLOOD UREA NITROGEN 53 MG/DL (7-18); BUN/CREATININE RATIO 22.5 (10.0-20.0); CALCIUM 7.9 MG/DL (8.5-10.1); CHLORIDE 106 MMOL/L (99-107); CREATININE 2.36 MG/DL (0.60-1.10); GLUCOSE 149 MG/DL (70-104); POTASSIUM 5.1 MMOL/L (3.5-5.1); SODIUM 140 MMOL/L (135-145); TOTAL PROTEIN 7.7 G/DL (6.4-8.2); eCRCL 32 ML/MIN; eGFR 27 ML/MIN
[2024-08-04 07:42] LABS: PLATELET ESTIMATE NORMAL; TOTAL CELLS COUNTED 100
[2024-08-04] MEDS: furosemide 40mg/4ml inj IV SCH (08:10)
[2024-08-04] MEDS: CefTRIAXone 2gm/D5W 50ml BAG 50 ML IV SCH (14:18)
[2024-08-04] MEDS: linezolid 600mg tablet PO SCH (14:18)
[2024-08-04] MEDS: methylPREDNISolone sod succ 125mg/2ml vial IV SCH (19:52)
[2024-08-05] VITALS (11 sets, daily range): BP systolic 138–158; BP diastolic 54–76; PULSE 61–75; RESP 14–20; TEMP 97.5–97.7; O2SAT 92–100
[2024-08-05 06:37] LABS: BASOPHILS % (AUTO) 0 % (0-1); EOSINOPHILS % (AUTO) 0.1 % (0-6); HEMATOCRIT 30.4 % (42.0-52.0); HEMOGLOBIN 10.2 g/dl (14.0-17.9); LYMPHOCYTES # (AUTO) 0.9 X10'3 (1.1-4.8); LYMPHOCYTES % (AUTO) 3.2 % (21-51); MEAN CORPUSCULAR HEMOGLOBIN 29.3 PG (27.0-31.0); MEAN CORPUSCULAR HGB CONC 33.6 g/dL (33.0-36.5); MEAN PLATELET VOLUME 7.9 FL (7.4-10.4); MONOCYTES # (AUTO) 1.2 X10'3 (0-0.9); MONOCYTES % (AUTO) 4.2 % (2-12); NEUTROPHILS # (AUTO) 25.3 X10'3 (1.8-7.7); NEUTROPHILS % (AUTO) 92.5 % (42-75); PLATELET COUNT 449 X10'3 (140-440); RED CELL DISTRIBUTION WIDTH 15.4 % (11.5-14.5)
[2024-08-05 06:49] LABS: ALANINE AMINOTRANSFERASE 33 U/L (12-78); ALBUMIN 1.6 G/DL (3.4-5.0); ALBUMIN/GLOBULIN RATIO 0.3 (1.1-1.5); ALKALINE PHOSPHATASE 135 IU/L (46-116); ANION GAP 5 (8-16); ASPARTATE AMINO TRANSFERASE 110 U/L (10-37); BILIRUBIN,TOTAL 0.4 MG/DL (0.1-1.0); BLOOD UREA NITROGEN 74 MG/DL (7-18); BUN/CREATININE RATIO 31.8 (10.0-20.0); CALCIUM 7.7 MG/DL (8.5-10.1); CHLORIDE 105 MMOL/L (99-107); CREATININE 2.33 MG/DL (0.60-1.10); GLUCOSE 172 MG/DL (70-104); POTASSIUM 5.8 MMOL/L (3.5-5.1); SODIUM 137 MMOL/L (135-145); TOTAL CARBON DIOXIDE 27.4 MMOL/L (24-32); TOTAL PROTEIN 7.7 G/DL (6.4-8.2); eCRCL 33 ML/MIN; eGFR 28 ML/MIN
[2024-08-05 06:50] LABS: WHITE BLOOD COUNT 27.4 X10'3 (4.5-11.0)
[2024-08-05 07:35] LABS: PLATELET ESTIMATE INCREASED; TOTAL CELLS COUNTED 100
[2024-08-05] MEDS: calcium chloride 100 MG/1 ML inj IV STA (09:15)
[2024-08-05] MEDS: dextrose 50%-water 50ml dispensing syringe IV ONE (09:57)
[2024-08-05] MEDS: insulin regular, human 10 units/0.1 ml syringe IV ONE (09:59)
[2024-08-05] MEDS: SODIUM ZIRCONIUM CYCLOSILICATE 10 GM POWD.PACK PO SCH (22:06)
[2024-08-05] MEDS: methylPREDNISolone sod succ 125mg/2ml vial IV SCH (22:07)
[2024-08-06] VITALS (11 sets, daily range): BP systolic 108–167; BP diastolic 47–69; PULSE 64–71; RESP 12–20; TEMP 97.5–98.5; O2SAT 93–100
[2024-08-06 07:29] LABS: BASOPHILS % (AUTO) 0.2 % (0-1); EOSINOPHILS % (AUTO) 0 % (0-6); HEMATOCRIT 32.9 % (42.0-52.0); LYMPHOCYTES # (AUTO) 0.9 X10'3 (1.1-4.8); LYMPHOCYTES % (AUTO) 4.2 % (21-51); MEAN CORPUSCULAR HEMOGLOBIN 29.1 PG (27.0-31.0); MEAN CORPUSCULAR HGB CONC 33.3 g/dL (33.0-36.5); MEAN CORPUSCULAR VOLUME 87.5 FL (78-98); MEAN PLATELET VOLUME 7.6 FL (7.4-10.4); MONOCYTES # (AUTO) 0.8 X10'3 (0-0.9); NEUTROPHILS # (AUTO) 19.1 X10'3 (1.8-7.7); NEUTROPHILS % (AUTO) 91.6 % (42-75); PLATELET COUNT 457 X10'3 (140-440); RED BLOOD COUNT 3.76 X10'6 (4.70-6.10); RED CELL DISTRIBUTION WIDTH 15.2 % (11.5-14.5); WHITE BLOOD COUNT 20.9 X10'3 (4.5-11.0)
[2024-08-06 07:47] LABS: ALANINE AMINOTRANSFERASE 44 U/L (12-78); ALBUMIN 1.7 G/DL (3.4-5.0); ALBUMIN/GLOBULIN RATIO 0.3 (1.1-1.5); ALKALINE PHOSPHATASE 125 IU/L (46-116); ANION GAP 4 (8-16); ASPARTATE AMINO TRANSFERASE 92 U/L (10-37); BILIRUBIN,TOTAL 0.4 MG/DL (0.1-1.0); BLOOD UREA NITROGEN 83 MG/DL (7-18); BUN/CREATININE RATIO 38.8 (10.0-20.0); CALCIUM 7.8 MG/DL (8.5-10.1); CHLORIDE 106 MMOL/L (99-107); CREATININE 2.14 MG/DL (0.60-1.10); GLUCOSE 180 MG/DL (70-104); SODIUM 141 MMOL/L (135-145); TOTAL CARBON DIOXIDE 30.9 MMOL/L (24-32); eCRCL 36 ML/MIN; eGFR 31 ML/MIN
[2024-08-06] MEDS: NUT.TX.IMP.RENAL FXN,LAC-REDUC (Nepro) 237 ML VANILLA PO SCH (08:00)
[2024-08-06 08:33] LABS: POTASSIUM 6.1 MMOL/L (3.5-5.1)
[2024-08-06] MEDS: calcium chloride 100 MG/1 ML inj IV STA ×2 (10:45→17:16)
[2024-08-06] MEDS: insulin regular, human 10 units/0.1 ml syringe IV ONE ×2 (10:51→17:19)
[2024-08-06] MEDS: calcium chloride 100 MG/1 ML inj IV ONE (10:51)
[2024-08-06] MEDS: dextrose 50%-water 50ml dispensing syringe IV ONE ×2 (10:51→17:17)
[2024-08-06] MEDS ORDERED: albuterol 2.5 MG/3 ML nebule NEB SCH (17:00)
[2024-08-06 17:15] LABS: ABG BASE EXCESS 4.2 mmol/L (-2.0-3.0); ABG HCO3 28.3 mmol/L (21.0-28.0); ABG OXYGEN SATURATION 93.8 % (94.0-98.0); ABG PCO2 (T) 40.6 mmHg (35.0-48.0); ABG PH (T) 7.461 (7.350-7.450); ALLEN'S TEST POSITIVE; FCOHb 0.5 % (0.5-1.5); FHHb 6.2 % (0.0-5.0); FMetHb 0.3 % (0.0-1.5); MODE ROOM AIR; TOTAL HEMOGLOBIN 11.7 G/dl (13.5-17.5)
[2024-08-06] MEDS: albuterol 2.5 MG/3 ML nebule NEB SCH (19:00)
[2024-08-06] MEDS: ondansetron/PF 4mg/2ml inj IV PRN (20:02)
[2024-08-06 20:41] LABS: BILIRUBIN,URINE NEGATIVE (Neg); CLARITY,URINE CLEAR (Clear); COLOR,URINE YELLOW (Yellow); GLUCOSE, URINE NEGATIVE (Neg); KETONES,URINE NEGATIVE (Neg); LEUKOCYTE ESTERASE ,URINE NEGATIVE (Neg); NITRITES, URINE NEGATIVE (Neg); OCCULT BLOOD,URINE NEGATIVE (Neg); PROTEIN,URINE NEGATIVE (Neg); UROBILINOGEN,URINE 0.2 E.U/dL (0.2-1.0)
[2024-08-06 20:52] LABS: UA COLLECTION TYPE NON-SPECIFIED
[2024-08-06 21:26] LABS: POTASSIUM 5.7 MMOL/L (3.5-5.1)
[2024-08-06] MEDS: proCHLORperazine 10 MG/2 ml inj IV PRN (22:37)
[2024-08-06] MEDS: hydrALAZINE 20mg/ml inj. IV SCH (22:38)
[2024-08-07] VITALS (13 sets, daily range): BP systolic 123–159; BP diastolic 55–79; PULSE 68–76; RESP 12–20; TEMP 97.6–98.4; O2SAT 92–100
[2024-08-07 07:30] LABS: BASOPHILS % (AUTO) 0.1 % (0-1); EOSINOPHILS % (AUTO) 0 % (0-6); HEMATOCRIT 34.4 % (42.0-52.0); HEMOGLOBIN 11.3 g/dl (14.0-17.9); LYMPHOCYTES % (AUTO) 5.6 % (21-51); MEAN CORPUSCULAR HEMOGLOBIN 28.5 PG (27.0-31.0); MEAN CORPUSCULAR HGB CONC 32.7 g/dL (33.0-36.5); MEAN CORPUSCULAR VOLUME 87.3 FL (78-98); MEAN PLATELET VOLUME 7.4 FL (7.4-10.4); MONOCYTES # (AUTO) 0.7 X10'3 (0-0.9); MONOCYTES % (AUTO) 3.7 % (2-12); NEUTROPHILS # (AUTO) 16.2 X10'3 (1.8-7.7); NEUTROPHILS % (AUTO) 90.6 % (42-75); PLATELET COUNT 455 X10'3 (140-440); RED BLOOD COUNT 3.94 X10'6 (4.70-6.10); RED CELL DISTRIBUTION WIDTH 15.2 % (11.5-14.5); WHITE BLOOD COUNT 17.9 X10'3 (4.5-11.0)
[2024-08-07 08:05] LABS: ALANINE AMINOTRANSFERASE 81 U/L (12-78); ALBUMIN 1.9 G/DL (3.4-5.0); ALBUMIN/GLOBULIN RATIO 0.3 (1.1-1.5); ALKALINE PHOSPHATASE 126 IU/L (46-116); ANION GAP 7 (8-16); ASPARTATE AMINO TRANSFERASE 103 U/L (10-37); BILIRUBIN,TOTAL 0.4 MG/DL (0.1-1.0); BLOOD UREA NITROGEN 82 MG/DL (7-18); BUN/CREATININE RATIO 41.2 (10.0-20.0); CALCIUM 8.1 MG/DL (8.5-10.1); CHLORIDE 104 MMOL/L (99-107); CREATININE 1.99 MG/DL (0.60-1.10); GLUCOSE 196 MG/DL (70-104); POTASSIUM 5.6 MMOL/L (3.5-5.1); SODIUM 141 MMOL/L (135-145); TOTAL CARBON DIOXIDE 29.9 MMOL/L (24-32); TOTAL PROTEIN 7.9 G/DL (6.4-8.2); eCRCL 38 ML/MIN; eGFR 33 ML/MIN
[2024-08-07] MEDS: dextrose 50%-water 50ml dispensing syringe IV ONE (13:56)
[2024-08-07] MEDS: insulin regular, human 10 units/0.1 ml syringe IV ONE (13:58)
[2024-08-08] VITALS (13 sets, daily range): BP systolic 114–160; BP diastolic 48–72; PULSE 71–81; RESP 12–20; TEMP 97.6–98.7; O2SAT 93–96
[2024-08-08] MEDS: acetaminophen 325mg tablet PO PRN (00:15)
[2024-08-08] MEDS: hydrALAZINE 20mg/ml inj. IV SCH (07:36)
[2024-08-08 07:51] LABS: BASOPHILS % (AUTO) 0.2 % (0-1); EOSINOPHILS # (AUTO) 0.1 X10'3 (0-0.9); EOSINOPHILS % (AUTO) 0.8 % (0-6); HEMATOCRIT 34.8 % (42.0-52.0); HEMOGLOBIN 11.4 g/dl (14.0-17.9); LYMPHOCYTES % (AUTO) 11.7 % (21-51); MEAN CORPUSCULAR HEMOGLOBIN 28.4 PG (27.0-31.0); MEAN CORPUSCULAR HGB CONC 32.6 g/dL (33.0-36.5); MEAN PLATELET VOLUME 7.5 FL (7.4-10.4); MONOCYTES # (AUTO) 1.1 X10'3 (0-0.9); MONOCYTES % (AUTO) 6.4 % (2-12); NEUTROPHILS # (AUTO) 14.1 X10'3 (1.8-7.7); NEUTROPHILS % (AUTO) 80.9 % (42-75); PLATELET COUNT 447 X10'3 (140-440); RED CELL DISTRIBUTION WIDTH 15.6 % (11.5-14.5); WHITE BLOOD COUNT 17.4 X10'3 (4.5-11.0)
[2024-08-08 08:40] LABS: ALANINE AMINOTRANSFERASE 63 U/L (12-78); ALBUMIN 2.1 G/DL (3.4-5.0); ALBUMIN/GLOBULIN RATIO 0.4 (1.1-1.5); ALKALINE PHOSPHATASE 111 IU/L (46-116); ANION GAP 8 (8-16); ASPARTATE AMINO TRANSFERASE 56 U/L (10-37); BILIRUBIN,TOTAL 0.5 MG/DL (0.1-1.0); BLOOD UREA NITROGEN 81 MG/DL (7-18); BUN/CREATININE RATIO 42.4 (10.0-20.0); CALCIUM 7.9 MG/DL (8.5-10.1); CHLORIDE 104 MMOL/L (99-107); CREATININE 1.91 MG/DL (0.60-1.10); GLUCOSE 162 MG/DL (70-104); POTASSIUM 4.8 MMOL/L (3.5-5.1); SODIUM 142 MMOL/L (135-145); TOTAL PROTEIN 7.8 G/DL (6.4-8.2); eCRCL 40 ML/MIN; eGFR 35 ML/MIN
[2024-08-08] MEDS ORDERED: meclizine 12.5mg tablet PO PRN (10:40)
[2024-08-08] MEDS ORDERED: albuterol 2.5 MG/3 ML nebule NEB PRN (17:30)
[2024-08-09] VITALS (10 sets, daily range): BP systolic 103–166; BP diastolic 52–79; PULSE 69–87; RESP 14–20; TEMP 97.3–98.2; O2SAT 92–97
[2024-08-09 07:57] LABS: BASOPHILS % (AUTO) 0.1 % (0-1); EOSINOPHILS % (AUTO) 0.1 % (0-6); HEMATOCRIT 35.8 % (42.0-52.0); HEMOGLOBIN 11.4 g/dl (14.0-17.9); LYMPHOCYTES # (AUTO) 1.1 X10'3 (1.1-4.8); LYMPHOCYTES % (AUTO) 6.3 % (21-51); MEAN CORPUSCULAR HEMOGLOBIN 28.3 PG (27.0-31.0); MEAN CORPUSCULAR HGB CONC 31.9 g/dL (33.0-36.5); MEAN CORPUSCULAR VOLUME 88.7 FL (78-98); MEAN PLATELET VOLUME 7.7 FL (7.4-10.4); MONOCYTES # (AUTO) 0.8 X10'3 (0-0.9); MONOCYTES % (AUTO) 4.4 % (2-12); NEUTROPHILS # (AUTO) 15.7 X10'3 (1.8-7.7); NEUTROPHILS % (AUTO) 89.1 % (42-75); PLATELET COUNT 419 X10'3 (140-440); RED BLOOD COUNT 4.04 X10'6 (4.70-6.10); RED CELL DISTRIBUTION WIDTH 15.2 % (11.5-14.5); WHITE BLOOD COUNT 17.6 X10'3 (4.5-11.0)
[2024-08-09 08:33] LABS: ALANINE AMINOTRANSFERASE 60 U/L (12-78); ALBUMIN 2.2 G/DL (3.4-5.0); ALBUMIN/GLOBULIN RATIO 0.4 (1.1-1.5); ALKALINE PHOSPHATASE 127 IU/L (46-116); ANION GAP 5 (8-16); ASPARTATE AMINO TRANSFERASE 37 U/L (10-37); BILIRUBIN,TOTAL 0.4 MG/DL (0.1-1.0); BLOOD UREA NITROGEN 82 MG/DL (7-18); BUN/CREATININE RATIO 45.6 (10.0-20.0); CALCIUM 7.4 MG/DL (8.5-10.1); CHLORIDE 105 MMOL/L (99-107); GLUCOSE 307 MG/DL (70-104); POTASSIUM 4.9 MMOL/L (3.5-5.1); SODIUM 141 MMOL/L (135-145); TOTAL CARBON DIOXIDE 31.3 MMOL/L (24-32); TOTAL PROTEIN 7.6 G/DL (6.4-8.2); eCRCL 43 ML/MIN; eGFR 37 ML/MIN
[2024-08-09] MEDS: hydrALAZINE 20mg/ml inj. IV ONE (12:02)
[2024-08-09] MEDS: NUT.TX.IMP.RENAL FXN,LAC-REDUC (Nepro) 237 ML VANILLA PO SCH (13:42)
[2024-08-09] MEDS: metoprolol tartrate 50mg tablet PO SCH (14:00)
[2024-08-09] MEDS: hydrALAZINE 20mg/ml inj. IV SCH (14:00)
[2024-08-10] VITALS (10 sets, daily range): BP systolic 115–148; BP diastolic 64–70; PULSE 60–71; RESP 12–20; TEMP 97.1–98.6; O2SAT 94–96
[2024-08-10 07:46] LABS: WHITE BLOOD COUNT 16.2 X10'3 (4.5-11.0)
[2024-08-10 07:49] LABS: BASOPHILS % (AUTO) 0.3 % (0-1); EOSINOPHILS # (AUTO) 0.3 X10'3 (0-0.9); EOSINOPHILS % (AUTO) 1.9 % (0-6); HEMATOCRIT 36.8 % (42.0-52.0); HEMOGLOBIN 12.1 g/dl (14.0-17.9); LYMPHOCYTES # (AUTO) 2.5 X10'3 (1.1-4.8); LYMPHOCYTES % (AUTO) 15.2 % (21-51); MEAN CORPUSCULAR HGB CONC 32.9 g/dL (33.0-36.5); MEAN CORPUSCULAR VOLUME 88.3 FL (78-98); MEAN PLATELET VOLUME 7.7 FL (7.4-10.4); MONOCYTES # (AUTO) 1.1 X10'3 (0-0.9); MONOCYTES % (AUTO) 6.9 % (2-12); NEUTROPHILS # (AUTO) 12.3 X10'3 (1.8-7.7); NEUTROPHILS % (AUTO) 75.7 % (42-75); PLATELET COUNT 498 X10'3 (140-440); RED BLOOD COUNT 4.17 X10'6 (4.70-6.10); RED CELL DISTRIBUTION WIDTH 15.4 % (11.5-14.5)
[2024-08-10] MEDS: furosemide 40mg tablet PO SCH (07:58)
[2024-08-10] MEDS: methylPREDNISolone sod succ/PF 40mg inj. IV SCH (07:59)
[2024-08-10 08:17] LABS: ALANINE AMINOTRANSFERASE 52 U/L (12-78); ALBUMIN 2.2 G/DL (3.4-5.0); ALBUMIN/GLOBULIN RATIO 0.4 (1.1-1.5); ALKALINE PHOSPHATASE 103 IU/L (46-116); ANION GAP 9 (8-16); ASPARTATE AMINO TRANSFERASE 29 U/L (10-37); BILIRUBIN,TOTAL 0.5 MG/DL (0.1-1.0); BLOOD UREA NITROGEN 71 MG/DL (7-18); BUN/CREATININE RATIO 47.7 (10.0-20.0); CALCIUM 7.9 MG/DL (8.5-10.1); CHLORIDE 106 MMOL/L (99-107); CREATININE 1.49 MG/DL (0.60-1.10); GLUCOSE 113 MG/DL (70-104); POTASSIUM 4.2 MMOL/L (3.5-5.1); SODIUM 142 MMOL/L (135-145); TOTAL CARBON DIOXIDE 27.3 MMOL/L (24-32); TOTAL PROTEIN 7.4 G/DL (6.4-8.2); eCRCL 51 ML/MIN; eGFR 46 ML/MIN
[2024-08-10 15:02] LABS: URIC ACID 8.5 MG/DL (3.5-7.2)
[2024-08-10] MEDS: colchicine 0.6mg tablet PO SCH (15:52)
[2024-08-11] VITALS (10 sets, daily range): BP systolic 127–150; BP diastolic 57–73; PULSE 51–77; RESP 15–20; TEMP 96.7–98.6; O2SAT 92–98
[2024-08-11 07:11] LABS: ALANINE AMINOTRANSFERASE 37 U/L (12-78); ALBUMIN 2.3 G/DL (3.4-5.0); ALBUMIN/GLOBULIN RATIO 0.5 (1.1-1.5); ALKALINE PHOSPHATASE 96 IU/L (46-116); ANION GAP 5 (8-16); ASPARTATE AMINO TRANSFERASE 31 U/L (10-37); BILIRUBIN,TOTAL 0.6 MG/DL (0.1-1.0); BLOOD UREA NITROGEN 64 MG/DL (7-18); CALCIUM 7.8 MG/DL (8.5-10.1); CHLORIDE 105 MMOL/L (99-107); CREATININE 1.56 MG/DL (0.60-1.10); GLUCOSE 124 MG/DL (70-104); POTASSIUM 4.4 MMOL/L (3.5-5.1); SODIUM 140 MMOL/L (135-145); TOTAL CARBON DIOXIDE 30.1 MMOL/L (24-32); TOTAL PROTEIN 7.2 G/DL (6.4-8.2); eCRCL 49 ML/MIN; eGFR 44 ML/MIN
[2024-08-11 07:11] LABS: BASOPHILS % (AUTO) 0.2 % (0-1); EOSINOPHILS # (AUTO) 0.2 X10'3 (0-0.9); EOSINOPHILS % (AUTO) 1.5 % (0-6); HEMATOCRIT 36.1 % (42.0-52.0); HEMOGLOBIN 11.9 g/dl (14.0-17.9); LYMPHOCYTES # (AUTO) 2.2 X10'3 (1.1-4.8); MEAN CORPUSCULAR HEMOGLOBIN 28.9 PG (27.0-31.0); MEAN CORPUSCULAR VOLUME 87.7 FL (78-98); MEAN PLATELET VOLUME 7.5 FL (7.4-10.4); MONOCYTES # (AUTO) 0.9 X10'3 (0-0.9); MONOCYTES % (AUTO) 6.7 % (2-12); NEUTROPHILS # (AUTO) 10.5 X10'3 (1.8-7.7); NEUTROPHILS % (AUTO) 75.6 % (42-75); PLATELET COUNT 436 X10'3 (140-440); RED BLOOD COUNT 4.12 X10'6 (4.70-6.10); RED CELL DISTRIBUTION WIDTH 15.4 % (11.5-14.5); WHITE BLOOD COUNT 13.9 X10'3 (4.5-11.0)
[2024-08-11 15:48] LABS: HEMOGLOBIN A1C 6.5 % (4.5-6.2)
[2024-08-12] VITALS (8 sets, daily range): BP systolic 128–141; BP diastolic 59–72; PULSE 61–78; RESP 13–20; TEMP 96.8–98.5; O2SAT 96–98
[2024-08-12 06:48] LABS: BASOPHILS # (AUTO) 0.1 X10'3 (0-0.2); BASOPHILS % (AUTO) 0.4 % (0-1); EOSINOPHILS # (AUTO) 0.2 X10'3 (0-0.9); EOSINOPHILS % (AUTO) 1.4 % (0-6); HEMATOCRIT 35.2 % (42.0-52.0); HEMOGLOBIN 11.5 g/dl (14.0-17.9); LYMPHOCYTES # (AUTO) 2.1 X10'3 (1.1-4.8); LYMPHOCYTES % (AUTO) 14.6 % (21-51); MEAN CORPUSCULAR HEMOGLOBIN 28.8 PG (27.0-31.0); MEAN CORPUSCULAR HGB CONC 32.7 g/dL (33.0-36.5); MEAN CORPUSCULAR VOLUME 88.1 FL (78-98); MEAN PLATELET VOLUME 7.5 FL (7.4-10.4); MONOCYTES # (AUTO) 0.9 X10'3 (0-0.9); MONOCYTES % (AUTO) 6.4 % (2-12); NEUTROPHILS # (AUTO) 11.2 X10'3 (1.8-7.7); NEUTROPHILS % (AUTO) 77.2 % (42-75); PLATELET COUNT 415 X10'3 (140-440); RED BLOOD COUNT 3.99 X10'6 (4.70-6.10); RED CELL DISTRIBUTION WIDTH 15.3 % (11.5-14.5); WHITE BLOOD COUNT 14.4 X10'3 (4.5-11.0)
[2024-08-12 07:22] LABS: ALANINE AMINOTRANSFERASE 40 U/L (12-78); ALBUMIN 2.3 G/DL (3.4-5.0); ALBUMIN/GLOBULIN RATIO 0.5 (1.1-1.5); ALKALINE PHOSPHATASE 92 IU/L (46-116); ANION GAP 9 (8-16); ASPARTATE AMINO TRANSFERASE 30 U/L (10-37); BILIRUBIN,TOTAL 0.5 MG/DL (0.1-1.0); BLOOD UREA NITROGEN 62 MG/DL (7-18); BUN/CREATININE RATIO 40.3 (10.0-20.0); CALCIUM 7.6 MG/DL (8.5-10.1); CHLORIDE 107 MMOL/L (99-107); CREATININE 1.54 MG/DL (0.60-1.10); GLUCOSE 125 MG/DL (70-104); POTASSIUM 4.2 MMOL/L (3.5-5.1); SODIUM 141 MMOL/L (135-145); TOTAL CARBON DIOXIDE 24.9 MMOL/L (24-32); TOTAL PROTEIN 6.8 G/DL (6.4-8.2); eCRCL 50 ML/MIN; eGFR 45 ML/MIN
[2024-08-13] VITALS (8 sets, daily range): BP systolic 123–151; BP diastolic 60–84; PULSE 73–78; RESP 13–20; TEMP 97.6–98.8; O2SAT 93–97
[2024-08-13 06:10] LABS: ALDOSTERONE 1.5 ng/dL (.)
[2024-08-13 09:14] LABS: RENIN, PLASMA 1.4 ng/mL/hr (.)
[2024-08-13 09:35] LABS: ALANINE AMINOTRANSFERASE 46 U/L (12-78); ALBUMIN 2.4 G/DL (3.4-5.0); ALBUMIN/GLOBULIN RATIO 0.5 (1.1-1.5); ALKALINE PHOSPHATASE 96 IU/L (46-116); ASPARTATE AMINO TRANSFERASE 35 U/L (10-37); BILIRUBIN,TOTAL 0.6 MG/DL (0.1-1.0); BLOOD UREA NITROGEN 53 MG/DL (7-18); BUN/CREATININE RATIO 37.3 (10.0-20.0); CALCIUM 8.3 MG/DL (8.5-10.1); CREATININE 1.42 MG/DL (0.60-1.10); GLUCOSE 116 MG/DL (70-104); TOTAL CARBON DIOXIDE 24.3 MMOL/L (24-32); eCRCL 54 ML/MIN; eGFR 49 ML/MIN
[2024-08-13 09:38] LABS: BASOPHILS # (AUTO) 0.1 X10'3 (0-0.2); BASOPHILS % (AUTO) 0.4 % (0-1); EOSINOPHILS # (AUTO) 0.3 X10'3 (0-0.9); EOSINOPHILS % (AUTO) 1.8 % (0-6); HEMOGLOBIN 11.9 g/dl (14.0-17.9); LYMPHOCYTES # (AUTO) 1.1 X10'3 (1.1-4.8); LYMPHOCYTES % (AUTO) 6.5 % (21-51); MEAN CORPUSCULAR HEMOGLOBIN 28.3 PG (27.0-31.0); MEAN CORPUSCULAR HGB CONC 32.2 g/dL (33.0-36.5); MEAN PLATELET VOLUME 7.7 FL (7.4-10.4); MONOCYTES % (AUTO) 5.8 % (2-12); NEUTROPHILS # (AUTO) 15.2 X10'3 (1.8-7.7); NEUTROPHILS % (AUTO) 85.5 % (42-75); PLATELET COUNT 431 X10'3 (140-440); RED BLOOD COUNT 4.21 X10'6 (4.70-6.10); RED CELL DISTRIBUTION WIDTH 15.8 % (11.5-14.5); WHITE BLOOD COUNT 17.8 X10'3 (4.5-11.0)
[2024-08-13 09:48] LABS: ANION GAP 9 (8-16); CHLORIDE 105 MMOL/L (99-107); POTASSIUM 4.6 MMOL/L (3.5-5.1); SODIUM 138 MMOL/L (135-145)
[2024-08-14] VITALS (10 sets, daily range): BP systolic 118–139; BP diastolic 45–77; PULSE 17–69; RESP 16–18; TEMP 97–98.4; O2SAT 94–97
[2024-08-14 02:44] LABS: UREA NITROGEN 24HR,URINE 31.9 GM/24HR (7-20)
[2024-08-14 02:45] LABS: TOTAL PROTEIN 24HR,URINE 436.8 MG/24HR (28-141)
[2024-08-14 07:39] LABS: BASOPHILS % (AUTO) 0.3 % (0-1); EOSINOPHILS # (AUTO) 0.2 X10'3 (0-0.9); EOSINOPHILS % (AUTO) 1.7 % (0-6); HEMATOCRIT 36.1 % (42.0-52.0); HEMOGLOBIN 11.7 g/dl (14.0-17.9); LYMPHOCYTES % (AUTO) 7.7 % (21-51); MEAN CORPUSCULAR HGB CONC 32.5 g/dL (33.0-36.5); MEAN CORPUSCULAR VOLUME 89.2 FL (78-98); MEAN PLATELET VOLUME 7.5 FL (7.4-10.4); MONOCYTES # (AUTO) 0.9 X10'3 (0-0.9); MONOCYTES % (AUTO) 6.6 % (2-12); NEUTROPHILS # (AUTO) 11.1 X10'3 (1.8-7.7); NEUTROPHILS % (AUTO) 83.7 % (42-75); PLATELET COUNT 362 X10'3 (140-440); RED BLOOD COUNT 4.05 X10'6 (4.70-6.10); WHITE BLOOD COUNT 13.2 X10'3 (4.5-11.0)
[2024-08-15] VITALS (9 sets, daily range): BP systolic 112–145; BP diastolic 58–76; PULSE 59–79; RESP 12–18; TEMP 97.3–98.2; O2SAT 94–97
[2024-08-16] VITALS (10 sets, daily range): BP systolic 100–159; BP diastolic 56–80; PULSE 61–69; RESP 10–18; TEMP 97.4–98.8; O2SAT 95–99
[2024-08-17] VITALS (10 sets, daily range): BP systolic 115–168; BP diastolic 57–88; PULSE 69–85; RESP 17–22; TEMP 95.7–98.3; O2SAT 94–99
[2024-08-17 07:37] LABS: BASOPHILS # (AUTO) 0.1 X10'3 (0-0.2); BASOPHILS % (AUTO) 0.6 % (0-1); EOSINOPHILS # (AUTO) 0.3 X10'3 (0-0.9); EOSINOPHILS % (AUTO) 1.8 % (0-6); HEMATOCRIT 33.5 % (42.0-52.0); LYMPHOCYTES # (AUTO) 1.1 X10'3 (1.1-4.8); LYMPHOCYTES % (AUTO) 7.2 % (21-51); MEAN CORPUSCULAR HEMOGLOBIN 29.4 PG (27.0-31.0); MEAN CORPUSCULAR VOLUME 89.2 FL (78-98); MEAN PLATELET VOLUME 7.8 FL (7.4-10.4); MONOCYTES # (AUTO) 1.1 X10'3 (0-0.9); MONOCYTES % (AUTO) 7.2 % (2-12); NEUTROPHILS # (AUTO) 12.7 X10'3 (1.8-7.7); NEUTROPHILS % (AUTO) 83.2 % (42-75); PLATELET COUNT 282 X10'3 (140-440); RED BLOOD COUNT 3.75 X10'6 (4.70-6.10); RED CELL DISTRIBUTION WIDTH 15.6 % (11.5-14.5); WHITE BLOOD COUNT 15.3 X10'3 (4.5-11.0)
[2024-08-17 08:03] LABS: ALANINE AMINOTRANSFERASE 38 U/L (12-78); ALBUMIN 2.2 G/DL (3.4-5.0); ALBUMIN/GLOBULIN RATIO 0.5 (1.1-1.5); ALKALINE PHOSPHATASE 89 IU/L (46-116); ANION GAP 6 (8-16); ASPARTATE AMINO TRANSFERASE 24 U/L (10-37); BILIRUBIN,TOTAL 0.5 MG/DL (0.1-1.0); BLOOD UREA NITROGEN 36 MG/DL (7-18); BUN/CREATININE RATIO 27.5 (10.0-20.0); CALCIUM 8.3 MG/DL (8.5-10.1); CHLORIDE 105 MMOL/L (99-107); CREATININE 1.31 MG/DL (0.60-1.10); GLUCOSE 101 MG/DL (70-104); POTASSIUM 4.3 MMOL/L (3.5-5.1); SODIUM 138 MMOL/L (135-145); TOTAL CARBON DIOXIDE 26.6 MMOL/L (24-32); TOTAL PROTEIN 6.9 G/DL (6.4-8.2); eCRCL 58 ML/MIN; eGFR 54 ML/MIN
[2024-08-18] VITALS (8 sets, daily range): BP systolic 126–136; BP diastolic 58–75; PULSE 66–80; RESP 13–20; TEMP 98–99.3; O2SAT 93–96
[2024-08-18] MEDS: morphine 2 MG/ML inj. syringe IV PRN (00:16)
[2024-08-18] MEDS: ketorolac trometh 15mg/ml vial 15 MG/ML ML IV ONE (12:46)
[2024-08-19 06:00] VITALS: BP 136/63; PULSE 88; RESP 20; TEMP 97.8; O2SAT 91
[2024-08-19 10:00] VITALS: BP 130/63; PULSE 81; RESP 20; TEMP 98.9; O2SAT 92
[2024-08-19 14:16] VITALS: PULSE 72; RESP 16; O2SAT 94
[2024-08-19 18:00] VITALS: BP 129/69; PULSE 102; RESP 20; TEMP 100.1; O2SAT 94
[2024-08-19 20:00] VITALS: RESP 20; O2SAT 94
[2024-08-19 22:00] VITALS: BP 105/53; PULSE 103; RESP 20; TEMP 99.9; O2SAT 92
[2024-08-20 04:55] LABS: BASOPHILS % (AUTO) 0.3 % (0-1); EOSINOPHILS % (AUTO) 0.2 % (0-6); HEMATOCRIT 29.7 % (42.0-52.0); HEMOGLOBIN 9.8 g/dl (14.0-17.9); LYMPHOCYTES # (AUTO) 0.8 X10'3 (1.1-4.8); LYMPHOCYTES % (AUTO) 4.8 % (21-51); MEAN CORPUSCULAR HEMOGLOBIN 28.8 PG (27.0-31.0); MEAN CORPUSCULAR HGB CONC 33.1 g/dL (33.0-36.5); MEAN CORPUSCULAR VOLUME 87.2 FL (78-98); MEAN PLATELET VOLUME 7.3 FL (7.4-10.4); MONOCYTES # (AUTO) 1.3 X10'3 (0-0.9); MONOCYTES % (AUTO) 7.7 % (2-12); NEUTROPHILS # (AUTO) 14.7 X10'3 (1.8-7.7); PLATELET COUNT 237 X10'3 (140-440); RED CELL DISTRIBUTION WIDTH 16.4 % (11.5-14.5); WHITE BLOOD COUNT 16.9 X10'3 (4.5-11.0)
[2024-08-20 05:11] LABS: ALANINE AMINOTRANSFERASE 62 U/L (12-78); ALBUMIN 1.7 G/DL (3.4-5.0); ALBUMIN/GLOBULIN RATIO 0.3 (1.1-1.5); ALKALINE PHOSPHATASE 102 IU/L (46-116); ANION GAP 9 (8-16); ASPARTATE AMINO TRANSFERASE 56 U/L (10-37); BILIRUBIN,TOTAL 1.2 MG/DL (0.1-1.0); BLOOD UREA NITROGEN 47 MG/DL (7-18); BUN/CREATININE RATIO 33.6 (10.0-20.0); CALCIUM 8.6 MG/DL (8.5-10.1); CHLORIDE 101 MMOL/L (99-107); GLUCOSE 145 MG/DL (70-104); POTASSIUM 4.6 MMOL/L (3.5-5.1); SODIUM 136 MMOL/L (135-145); TOTAL CARBON DIOXIDE 25.6 MMOL/L (24-32); TOTAL PROTEIN 6.6 G/DL (6.4-8.2); eCRCL 55 ML/MIN; eGFR 50 ML/MIN
[2024-08-20 06:00] VITALS: BP 109/65; PULSE 86; RESP 16; TEMP 99.4; O2SAT 90
[2024-08-20 12:23] VITALS: PULSE 90; RESP 18; O2SAT 96
[2024-08-20 18:00] VITALS: BP 115/56; PULSE 80; RESP 22; TEMP 97.6; O2SAT 94
[2024-08-20 19:38] VITALS: PULSE 86; RESP 18; O2SAT 94
[2024-08-20 20:00] VITALS: RESP 20
[2024-08-20 22:00] VITALS: BP 133/76; PULSE 87; RESP 18; TEMP 98.7; O2SAT 96
[2024-08-21] VITALS (8 sets, daily range): BP systolic 121–148; BP diastolic 61–72; PULSE 88–99; RESP 16–24; TEMP 98–100.7; O2SAT 91–95
[2024-08-21 01:20] LABS: ALANINE AMINOTRANSFERASE 64 U/L (12-78); ALBUMIN 1.8 G/DL (3.4-5.0); ALBUMIN/GLOBULIN RATIO 0.3 (1.1-1.5); ALKALINE PHOSPHATASE 108 IU/L (46-116); ANION GAP 10 (8-16); ASPARTATE AMINO TRANSFERASE 57 U/L (10-37); BILIRUBIN,TOTAL 0.9 MG/DL (0.1-1.0); BLOOD UREA NITROGEN 55 MG/DL (7-18); BUN/CREATININE RATIO 37.2 (10.0-20.0); CALCIUM 8.8 MG/DL (8.5-10.1); CHLORIDE 100 MMOL/L (99-107); CREATININE 1.48 MG/DL (0.60-1.10); GLUCOSE 131 MG/DL (70-104); POTASSIUM 4.4 MMOL/L (3.5-5.1); SODIUM 136 MMOL/L (135-145); TOTAL CARBON DIOXIDE 26.2 MMOL/L (24-32); TOTAL PROTEIN 7.2 G/DL (6.4-8.2); eCRCL 52 ML/MIN; eGFR 47 ML/MIN
[2024-08-21] MEDS: furosemide 40mg/4ml inj IV ONE (13:56)
[2024-08-21] MEDS: furosemide 40mg/4ml inj IV SCH (20:19)
[2024-08-22] VITALS (8 sets, daily range): BP systolic 109–147; BP diastolic 51–78; PULSE 84–98; RESP 12–24; TEMP 98.1–100.4; O2SAT 92–99
[2024-08-22 06:38] LABS: ALANINE AMINOTRANSFERASE 90 U/L (12-78); ALBUMIN 1.6 G/DL (3.4-5.0); ALBUMIN/GLOBULIN RATIO 0.3 (1.1-1.5); ALKALINE PHOSPHATASE 125 IU/L (46-116); ANION GAP 8 (8-16); ASPARTATE AMINO TRANSFERASE 102 U/L (10-37); BILIRUBIN,TOTAL 1.1 MG/DL (0.1-1.0); BLOOD UREA NITROGEN 64 MG/DL (7-18); BUN/CREATININE RATIO 42.4 (10.0-20.0); CALCIUM 8.5 MG/DL (8.5-10.1); CHLORIDE 103 MMOL/L (99-107); CREATININE 1.51 MG/DL (0.60-1.10); GLUCOSE 124 MG/DL (70-104); POTASSIUM 3.7 MMOL/L (3.5-5.1); SODIUM 137 MMOL/L (135-145); TOTAL PROTEIN 6.8 G/DL (6.4-8.2); eCRCL 51 ML/MIN; eGFR 46 ML/MIN
[2024-08-22 06:42] LABS: BASOPHILS % (AUTO) 0.3 % (0-1); EOSINOPHILS # (AUTO) 0.1 X10'3 (0-0.9); EOSINOPHILS % (AUTO) 0.8 % (0-6); HEMATOCRIT 29.2 % (42.0-52.0); HEMOGLOBIN 9.9 g/dl (14.0-17.9); LYMPHOCYTES # (AUTO) 0.8 X10'3 (1.1-4.8); LYMPHOCYTES % (AUTO) 6.1 % (21-51); MEAN CORPUSCULAR HEMOGLOBIN 29.2 PG (27.0-31.0); MEAN CORPUSCULAR HGB CONC 33.8 g/dL (33.0-36.5); MEAN CORPUSCULAR VOLUME 86.4 FL (78-98); MEAN PLATELET VOLUME 7.2 FL (7.4-10.4); MONOCYTES % (AUTO) 7.9 % (2-12); NEUTROPHILS # (AUTO) 11.3 X10'3 (1.8-7.7); NEUTROPHILS % (AUTO) 84.9 % (42-75); PLATELET COUNT 226 X10'3 (140-440); RED BLOOD COUNT 3.38 X10'6 (4.70-6.10); RED CELL DISTRIBUTION WIDTH 16.2 % (11.5-14.5); WHITE BLOOD COUNT 13.3 X10'3 (4.5-11.0)
[2024-08-22 15:38] LABS: PRO BRAIN NATRIURETIC PEPTIDE 296 PG/ML (0-125)
[2024-08-23] VITALS (7 sets, daily range): BP systolic 100–160; BP diastolic 55–84; PULSE 87–100; RESP 12–21; TEMP 98.2–99.4; O2SAT 93–95
[2024-08-23 06:18] LABS: BASOPHILS % (AUTO) 0.3 % (0-1); EOSINOPHILS # (AUTO) 0.1 X10'3 (0-0.9); EOSINOPHILS % (AUTO) 0.9 % (0-6); HEMATOCRIT 28.2 % (42.0-52.0); HEMOGLOBIN 9.5 g/dl (14.0-17.9); LYMPHOCYTES # (AUTO) 0.8 X10'3 (1.1-4.8); LYMPHOCYTES % (AUTO) 5.7 % (21-51); MEAN CORPUSCULAR HEMOGLOBIN 29.3 PG (27.0-31.0); MEAN CORPUSCULAR HGB CONC 33.6 g/dL (33.0-36.5); MEAN PLATELET VOLUME 7.2 FL (7.4-10.4); MONOCYTES # (AUTO) 1.2 X10'3 (0-0.9); MONOCYTES % (AUTO) 8.8 % (2-12); NEUTROPHILS # (AUTO) 11.6 X10'3 (1.8-7.7); NEUTROPHILS % (AUTO) 84.3 % (42-75); PLATELET COUNT 233 X10'3 (140-440); RED BLOOD COUNT 3.24 X10'6 (4.70-6.10); RED CELL DISTRIBUTION WIDTH 16.3 % (11.5-14.5); WHITE BLOOD COUNT 13.8 X10'3 (4.5-11.0)
[2024-08-24] VITALS (8 sets, daily range): BP systolic 113–162; BP diastolic 65–81; PULSE 90–98; RESP 14–20; TEMP 98–100.3; O2SAT 94–96
[2024-08-24 05:20] LABS: BASOPHILS % (AUTO) 0.3 % (0-1); EOSINOPHILS # (AUTO) 0.2 X10'3 (0-0.9); EOSINOPHILS % (AUTO) 1.7 % (0-6); LYMPHOCYTES # (AUTO) 0.6 X10'3 (1.1-4.8); LYMPHOCYTES % (AUTO) 4.5 % (21-51); MEAN CORPUSCULAR HEMOGLOBIN 28.6 PG (27.0-31.0); MEAN CORPUSCULAR HGB CONC 33.4 g/dL (33.0-36.5); MEAN CORPUSCULAR VOLUME 85.6 FL (78-98); MEAN PLATELET VOLUME 7.1 FL (7.4-10.4); MONOCYTES # (AUTO) 1.2 X10'3 (0-0.9); MONOCYTES % (AUTO) 8.6 % (2-12); NEUTROPHILS # (AUTO) 11.5 X10'3 (1.8-7.7); NEUTROPHILS % (AUTO) 84.9 % (42-75); PLATELET COUNT 254 X10'3 (140-440); RED CELL DISTRIBUTION WIDTH 16.1 % (11.5-14.5); WHITE BLOOD COUNT 13.5 X10'3 (4.5-11.0)
[2024-08-25] VITALS (9 sets, daily range): BP systolic 117–122; BP diastolic 61–69; PULSE 74–113; RESP 17–22; TEMP 97.4–99.8; O2SAT 94–98
[2024-08-26] VITALS (8 sets, daily range): BP systolic 121–131; BP diastolic 63–78; PULSE 99–120; RESP 16–24; TEMP 97.9–99.2; O2SAT 93–96
[2024-08-26] MEDS: docusate sod 100mg capsule PO PRN (20:20)
[2024-08-27 06:00] VITALS: BP 107/49; PULSE 74; RESP 18; TEMP 98.2; O2SAT 100
[2024-08-27 09:01] VITALS: PULSE 88; RESP 24; O2SAT 96
[2024-08-27 10:00] VITALS: BP 95/69; PULSE 57; RESP 18; TEMP 97.4; O2SAT 96
== END 2024-08-27 19:05 | DRG 871 ==
LOC: ER 13:28 → PCU 3S 16:25 → SUR 3N 08-17 16:28
PROVIDERS: ADMIT Nurse Practitioner Family; ATTEND Nurse Practitioner Family
PROC: 5A09357 Assistance with Respiratory Ventilation, Less than 24 Consecutive Hours, Continuous Positive Airway Pressure (ICD-10-PCS; principal; 2024-07-26)
PROC: B32T1ZZ Computerized Tomography (CT Scan) of Left Pulmonary Artery using Low Osmolar Contrast (ICD-10-PCS; 2024-07-26)
PROC: B3201ZZ Computerized Tomography (CT Scan) of Thoracic Aorta using Low Osmolar Contrast (ICD-10-PCS; 2024-07-26)
PROC: B32S1ZZ Computerized Tomography (CT Scan) of Right Pulmonary Artery using Low Osmolar Contrast (ICD-10-PCS; 2024-07-26)
PROC: 5A09357 Assistance with Respiratory Ventilation, Less than 24 Consecutive Hours, Continuous Positive Airway Pressure (ICD-10-PCS; 2024-07-27)
PROC: 4A02XM4 Measurement of Cardiac Total Activity, External Approach (ICD-10-PCS; 2024-07-27)
PROC: 3E033HZ Introduction of Radioactive Substance into Peripheral Vein, Percutaneous Approach (ICD-10-PCS; 2024-07-27)
PROC: 5A09357 Assistance with Respiratory Ventilation, Less than 24 Consecutive Hours, Continuous Positive Airway Pressure (ICD-10-PCS; 2024-07-28)
PROC: 05HD33Z Insertion of Infusion Device into Right Cephalic Vein, Percutaneous Approach (ICD-10-PCS; 2024-07-28)
PROC: 5A09357 Assistance with Respiratory Ventilation, Less than 24 Consecutive Hours, Continuous Positive Airway Pressure (ICD-10-PCS; 2024-07-29)
PROC: 5A09357 Assistance with Respiratory Ventilation, Less than 24 Consecutive Hours, Continuous Positive Airway Pressure (ICD-10-PCS; 2024-07-30)
PROC: 5A09357 Assistance with Respiratory Ventilation, Less than 24 Consecutive Hours, Continuous Positive Airway Pressure (ICD-10-PCS; 2024-08-03)
PROC: 5A09357 Assistance with Respiratory Ventilation, Less than 24 Consecutive Hours, Continuous Positive Airway Pressure (ICD-10-PCS; 2024-08-04)
PROC: 5A09357 Assistance with Respiratory Ventilation, Less than 24 Consecutive Hours, Continuous Positive Airway Pressure (ICD-10-PCS; 2024-08-05)
DX: A40.9 Streptococcal sepsis, unspecified (principal); I21.4 Non-ST elevation (NSTEMI) myocardial infarction; I21.A1 Myocardial infarction type 2; L03.115 Cellulitis of right lower limb; L03.116 Cellulitis of left lower limb; N17.9 Acute kidney failure, unspecified; Z68.43 Body mass index [BMI] 50.0-59.9, adult; Z20.822 Contact with and (suspected) exposure to COVID-19; Z87.891 Personal history of nicotine dependence; I12.9 Hypertensive chronic kidney disease with stage 1 through stage 4 chronic kidney disease, or unspecified chronic kidney disease; E66.01 Morbid (severe) obesity due to excess calories; I48.91 Unspecified atrial fibrillation; G47.33 Obstructive sleep apnea (adult) (pediatric); E87.5 Hyperkalemia; I49.3 Ventricular premature depolarization; N18.30 Chronic kidney disease, stage 3 unspecified; Z79.899 Other long term (current) drug therapy; R06.03 Acute respiratory distress
CPT/HCPCS: 36410; 36415; 36600; 71045; 71275; 73110; 73700; 76770; 76937; 78452; 80053; 80202; 80305; 81001; 81003; 82088; 82570; 82803; 83036; 83605; 83735; 83880; 83930; 84132; 84145; 84156; 84244; 84300; 84443; 84484; 84550; 84560; 85007; 85018; 85025; 85379; 85610; 85651; 85730; 86060; 86140; 86160; 87040; 87077; 87081; 87186; 87811; 93005; 93017; 93306; 93970; 93971; 94640; 94660; 94760; 97110; 97116; 97161; 97530; 97535; 99291; A4314; A4349; A4421; A4565; A6212; A6213; A6223; A6250; A6258; A6260; A6446; A6449; A6590; A9500; C1751; C1758; G0378; J0131; J0360; J0690; J0696; J0780; J1630; J1644; J1815; J1885; J1940; J2270; J2405; J2765; J2785; J2919; J3372; J3490; J7030; J7040; J7050; J7120; Q9967

== ENCOUNTER 2024-09-21 17:29 | Inpatient (IN) | payer MEDICARE, MEDICAID, OTHER ==
[~2024-09-21] VITALS: Ht 185.4 cm; Wt 190.0 kg
[~2024-09-21 17:29] MED LIST changes: +FURO40TA4 PO; +HYDR-3972; +NAPR-56 PO; +POTA-207 PO
[2024-09-21 18:52] LABS: BASOPHILS % (AUTO) 0.3 % (0-1); EOSINOPHILS # (AUTO) 0.5 X10'3 (0-0.9); EOSINOPHILS % (AUTO) 2.7 % (0-6); HEMATOCRIT 26.4 % (42.0-52.0); HEMOGLOBIN 8.4 g/dl (14.0-17.9); LYMPHOCYTES # (AUTO) 1.4 X10'3 (1.1-4.8); LYMPHOCYTES % (AUTO) 7.8 % (21-51); MEAN CORPUSCULAR HEMOGLOBIN 26.8 PG (27.0-31.0); MEAN CORPUSCULAR HGB CONC 31.9 g/dL (33.0-36.5); MEAN PLATELET VOLUME 6.1 FL (7.4-10.4); MONOCYTES # (AUTO) 1.1 X10'3 (0-0.9); NEUTROPHILS # (AUTO) 14.9 X10'3 (1.8-7.7); NEUTROPHILS % (AUTO) 83.2 % (42-75); PLATELET COUNT 601 X10'3 (140-440); RED BLOOD COUNT 3.14 X10'6 (4.70-6.10); WHITE BLOOD COUNT 17.8 X10'3 (4.5-11.0)
[2024-09-21 19:15] LABS: ALANINE AMINOTRANSFERASE 89 U/L (12-78); ALBUMIN 1.5 G/DL (3.4-5.0); ALBUMIN/GLOBULIN RATIO 0.3 (1.1-1.5); ALKALINE PHOSPHATASE 137 IU/L (46-116); ANION GAP 4 (8-16); ASPARTATE AMINO TRANSFERASE 63 U/L (10-37); BILIRUBIN,DIRECT 0.3 MG/DL (0-0.3); BILIRUBIN,TOTAL 0.5 MG/DL (0.1-1.0); BLOOD UREA NITROGEN 21 MG/DL (7-18); BUN/CREATININE RATIO 26.6 (10.0-20.0); CALCIUM 8.3 MG/DL (8.5-10.1); CHLORIDE 107 MMOL/L (99-107); CREATININE 0.79 MG/DL (0.60-1.10); GLUCOSE 122 MG/DL (70-104); POTASSIUM 4.2 MMOL/L (3.5-5.1); SODIUM 142 MMOL/L (135-145); TOTAL CARBON DIOXIDE 30.9 MMOL/L (24-32); TOTAL PROTEIN 7.4 G/DL (6.4-8.2); eCRCL 97 ML/MIN; eGFR > 90 ML/MIN
[2024-09-21 21:25] LABS: APTT 35 SECONDS (22-32); INR 1.2 INR
[2024-09-21 21:34] LABS: MAGNESIUM 1.7 MG/DL (1.5-2.4)
[2024-09-21] MEDS ORDERED: magnesium sulf-water 4G/100mL 100 ML IV PRN (21:50)
[2024-09-21] MEDS ORDERED: potassium Cl 20 mEq SR tablet PO PRN ×2 (21:50)
[2024-09-21] MEDS ORDERED: mag hydrox/Alum hydrox/simeth 30ml oral suspension PO PRN (21:50)
[2024-09-21] MEDS ORDERED: potassium Cl 40MEQ/1/2NS 520ml 520 ML IV PRN (21:50)
[2024-09-21] MEDS ORDERED: ondansetron/PF 4mg/2ml inj IV PRN (21:50)
[2024-09-21] MEDS ORDERED: magnesium hydroxide 30ml (MOM) UD suspension PO PRN (21:50)
[2024-09-21] MEDS ORDERED: magnesium sulf-water 2g/50mL 50 ML IV PRN (21:50)
[2024-09-21] MEDS ORDERED: magnesium Cl slow-release 64mg tablet PO PRN (21:50)
[2024-09-21] MEDS: normal saline 1000ml 1,000 ML IV ONE (22:06)
[2024-09-21] MEDS: vancomycin/NS 1 GM ADD-VANTAGE 250 ML IV SCH (22:07)
[2024-09-21 22:21] LABS: C-REACTIVE PROTEIN 9.59 MG/DL (0.0-0.5); PHOSPHORUS 2.8 MG/DL (2.3-4.5)
[2024-09-21 22:46] LABS: BILIRUBIN,URINE NEGATIVE (Neg); CLARITY,URINE CLEAR (Clear); COLOR,URINE YELLOW (Yellow); GLUCOSE, URINE NEGATIVE (Neg); KETONES,URINE NEGATIVE (Neg); LEUKOCYTE ESTERASE ,URINE NEGATIVE (Neg); NITRITES, URINE NEGATIVE (Neg); OCCULT BLOOD,URINE NEGATIVE (Neg); PH,URINE 5.5 (4.8-8.0); PROTEIN,URINE TRACE mg/dl (Neg); UROBILINOGEN,URINE 0.2 E.U/dL (0.2-1.0)
[2024-09-21 22:49] LABS: UA COLLECTION TYPE CLN CATCH MIDSTREAM
[2024-09-21 22:50] LABS: MUCUS STRANDS MODERATE /LPF (Neg); SQUAMOUS EPITHELIAL CELL,UR FEW /LPF (FEW)
[2024-09-21 22:51] LABS: BACTERIA,URINE 2+ /HPF (Neg); RBC,URINE NONE SEEN /HPF (0-2); WBC,URINE 0-4 /HPF (0-4)
[2024-09-21 23:24] VITALS: PULSE 98; RESP 18; O2SAT 92
[2024-09-21] MEDS ORDERED: APIX5TAB3 PO (23:30)
[2024-09-21] MEDS ORDERED: BISA10SU60 RC (23:30)
[2024-09-21] MEDS ORDERED: NITR0.4T51 SL (23:30)
[2024-09-21] MEDS ORDERED: MAGN400O6 PO (23:30)
[2024-09-21] MEDS ORDERED: METO50TA16 PO (23:30)
[2024-09-21] MEDS ORDERED: ASPI81TA52 PO (23:30)
[2024-09-21] MEDS ORDERED: FERR325T28 PO (23:30)
[2024-09-21] MEDS ORDERED: DOXY-460 PO (23:30)
[2024-09-21] MEDS ORDERED: ACET-890 PO (23:30)
[2024-09-21] MEDS ORDERED: HYDR-3965 PO (23:30)
[2024-09-21] MEDS ORDERED: ATOR-429 PO (23:30)
[2024-09-21 23:45] VITALS: BP 150/66; PULSE 99; RESP 16; TEMP 97.9; O2SAT 95
[2024-09-22] VITALS (7 sets, daily range): BP systolic 113–140; BP diastolic 56–75; PULSE 77–95; RESP 16–24; TEMP 99.1–100.9; O2SAT 94–96
[2024-09-22] MEDS: metoprolol tartrate 50mg tablet PO SCH (01:12)
[2024-09-22] MEDS: morphine 2 MG/ML inj. syringe IV PRN ×2 (01:33→19:20)
[2024-09-22] MEDS: piperacillin/tazo 3.375gm/50ml 50 ML IV SCH (01:33)
[2024-09-22 04:58] LABS: BASOPHILS % (AUTO) 0.2 % (0-1); EOSINOPHILS # (AUTO) 0.3 X10'3 (0-0.9); EOSINOPHILS % (AUTO) 1.6 % (0-6); HEMATOCRIT 24.9 % (42.0-52.0); HEMOGLOBIN 7.8 g/dl (14.0-17.9); LYMPHOCYTES # (AUTO) 1.2 X10'3 (1.1-4.8); LYMPHOCYTES % (AUTO) 6.1 % (21-51); MEAN CORPUSCULAR HEMOGLOBIN 26.3 PG (27.0-31.0); MEAN CORPUSCULAR HGB CONC 31.5 g/dL (33.0-36.5); MEAN CORPUSCULAR VOLUME 83.7 FL (78-98); MONOCYTES # (AUTO) 1.1 X10'3 (0-0.9); MONOCYTES % (AUTO) 5.9 % (2-12); NEUTROPHILS # (AUTO) 16.8 X10'3 (1.8-7.7); NEUTROPHILS % (AUTO) 86.2 % (42-75); PLATELET COUNT 532 X10'3 (140-440); RED BLOOD COUNT 2.97 X10'6 (4.70-6.10); RED CELL DISTRIBUTION WIDTH 18.2 % (11.5-14.5); WHITE BLOOD COUNT 19.5 X10'3 (4.5-11.0)
[2024-09-22 05:18] LABS: ALANINE AMINOTRANSFERASE 70 U/L (12-78); ALBUMIN 1.3 G/DL (3.4-5.0); ALBUMIN/GLOBULIN RATIO 0.2 (1.1-1.5); ALKALINE PHOSPHATASE 116 IU/L (46-116); ANION GAP 3 (8-16); ASPARTATE AMINO TRANSFERASE 44 U/L (10-37); BILIRUBIN,TOTAL 0.4 MG/DL (0.1-1.0); BLOOD UREA NITROGEN 21 MG/DL (7-18); BUN/CREATININE RATIO 29.6 (10.0-20.0); CHLORIDE 107 MMOL/L (99-107); CREATININE 0.71 MG/DL (0.60-1.10); GLUCOSE 136 MG/DL (70-104); POTASSIUM 3.9 MMOL/L (3.5-5.1); SODIUM 140 MMOL/L (135-145); TOTAL CARBON DIOXIDE 29.9 MMOL/L (24-32); TOTAL PROTEIN 6.6 G/DL (6.4-8.2); eCRCL 108 ML/MIN; eGFR > 90 ML/MIN
[2024-09-22] MEDS: VANCOMYCIN 1GM 200ML H20 (PEG) 200 ML IV SCH (05:43)
[2024-09-22] MEDS: K and/or MAG REPLACEMENT MC SCH (07:08)
[2024-09-22] MEDS ORDERED: enoxaparin 40mg/0.4ml syringe SUBCUT SCH (08:00)
[2024-09-22] MEDS: apixaban 5mg tablet PO SCH (08:09)
[2024-09-22] MEDS: ciprofloxacin 0.3% 2.5ml ophthalmic solution EACHEYE SCH (08:10)
[2024-09-22] MEDS: VANCOMYCIN LEVEL IV ONE (21:39)
[2024-09-23] VITALS (9 sets, daily range): BP systolic 121–145; BP diastolic 67–74; PULSE 68–88; RESP 17–18; TEMP 97.5–99.1; O2SAT 77–99
[2024-09-23 04:55] LABS: BASOPHILS # (AUTO) 0.1 X10'3 (0-0.2); BASOPHILS % (AUTO) 0.4 % (0-1); EOSINOPHILS # (AUTO) 0.5 X10'3 (0-0.9); HEMATOCRIT 24.1 % (42.0-52.0); HEMOGLOBIN 7.8 g/dl (14.0-17.9); LYMPHOCYTES # (AUTO) 1.4 X10'3 (1.1-4.8); LYMPHOCYTES % (AUTO) 8.8 % (21-51); MEAN CORPUSCULAR HGB CONC 32.4 g/dL (33.0-36.5); MEAN CORPUSCULAR VOLUME 83.5 FL (78-98); MEAN PLATELET VOLUME 5.9 FL (7.4-10.4); MONOCYTES # (AUTO) 1.1 X10'3 (0-0.9); MONOCYTES % (AUTO) 6.6 % (2-12); NEUTROPHILS # (AUTO) 13.4 X10'3 (1.8-7.7); NEUTROPHILS % (AUTO) 81.2 % (42-75); PLATELET COUNT 477 X10'3 (140-440); RED BLOOD COUNT 2.89 X10'6 (4.70-6.10); WHITE BLOOD COUNT 16.5 X10'3 (4.5-11.0)
[2024-09-23 05:18] LABS: ALANINE AMINOTRANSFERASE 58 U/L (12-78); ALBUMIN 1.3 G/DL (3.4-5.0); ALBUMIN/GLOBULIN RATIO 0.3 (1.1-1.5); ALKALINE PHOSPHATASE 102 IU/L (46-116); ANION GAP 3 (8-16); ASPARTATE AMINO TRANSFERASE 40 U/L (10-37); BILIRUBIN,TOTAL 0.5 MG/DL (0.1-1.0); BLOOD UREA NITROGEN 19 MG/DL (7-18); BUN/CREATININE RATIO 25.7 (10.0-20.0); CALCIUM 8.3 MG/DL (8.5-10.1); CHLORIDE 107 MMOL/L (99-107); CREATININE 0.74 MG/DL (0.60-1.10); GLUCOSE 97 MG/DL (70-104); POTASSIUM 4.1 MMOL/L (3.5-5.1); SODIUM 139 MMOL/L (135-145); TOTAL CARBON DIOXIDE 28.8 MMOL/L (24-32); TOTAL PROTEIN 6.5 G/DL (6.4-8.2); eCRCL 103 ML/MIN; eGFR > 90 ML/MIN
[2024-09-23] MEDS: morphine 2 MG/ML inj. syringe IV PRN (10:55)
[2024-09-23] MEDS: VANCOMYCIN 1.75GM/WATER FOR INJ (PEG) 350 ML IVPB IV SCH (17:59)
[2024-09-24] VITALS (8 sets, daily range): BP systolic 117–144; BP diastolic 68–74; PULSE 80–105; RESP 16–18; TEMP 99.2–101.5; O2SAT 94–98
[2024-09-24] MEDS: acetaminophen 325mg tablet PO PRN (05:46)
[2024-09-24 06:15] LABS: BASOPHILS # (AUTO) 0.1 X10'3 (0-0.2); BASOPHILS % (AUTO) 0.3 % (0-1); EOSINOPHILS # (AUTO) 0.5 X10'3 (0-0.9); EOSINOPHILS % (AUTO) 2.6 % (0-6); HEMATOCRIT 24.7 % (42.0-52.0); LYMPHOCYTES # (AUTO) 0.8 X10'3 (1.1-4.8); LYMPHOCYTES % (AUTO) 4.5 % (21-51); MEAN CORPUSCULAR HEMOGLOBIN 26.9 PG (27.0-31.0); MEAN CORPUSCULAR HGB CONC 32.3 g/dL (33.0-36.5); MEAN CORPUSCULAR VOLUME 83.4 FL (78-98); MEAN PLATELET VOLUME 6.3 FL (7.4-10.4); MONOCYTES # (AUTO) 1.1 X10'3 (0-0.9); MONOCYTES % (AUTO) 5.8 % (2-12); NEUTROPHILS # (AUTO) 16.2 X10'3 (1.8-7.7); NEUTROPHILS % (AUTO) 86.8 % (42-75); PLATELET COUNT 524 X10'3 (140-440); RED BLOOD COUNT 2.96 X10'6 (4.70-6.10); RED CELL DISTRIBUTION WIDTH 17.7 % (11.5-14.5); WHITE BLOOD COUNT 18.7 X10'3 (4.5-11.0)
[2024-09-24 06:23] LABS: ALANINE AMINOTRANSFERASE 58 U/L (12-78); ALBUMIN 1.4 G/DL (3.4-5.0); ALBUMIN/GLOBULIN RATIO 0.3 (1.1-1.5); ALKALINE PHOSPHATASE 115 IU/L (46-116); ANION GAP 3 (8-16); ASPARTATE AMINO TRANSFERASE 42 U/L (10-37); BILIRUBIN,TOTAL 0.9 MG/DL (0.1-1.0); BLOOD UREA NITROGEN 14 MG/DL (7-18); BUN/CREATININE RATIO 19.7 (10.0-20.0); CALCIUM 8.4 MG/DL (8.5-10.1); CHLORIDE 104 MMOL/L (99-107); CREATININE 0.71 MG/DL (0.60-1.10); GLUCOSE 100 MG/DL (70-104); POTASSIUM 4.5 MMOL/L (3.5-5.1); SODIUM 136 MMOL/L (135-145); TOTAL CARBON DIOXIDE 29.4 MMOL/L (24-32); TOTAL PROTEIN 6.7 G/DL (6.4-8.2); eCRCL 108 ML/MIN; eGFR > 90 ML/MIN
[2024-09-24] MEDS: JUVEN Smoothie Arginine/Glut./Ca2+Bmb (Juven 19.3pkt) 240ml cup PO SCH (17:10)
[2024-09-25] VITALS (7 sets, daily range): BP systolic 121–135; BP diastolic 53–64; PULSE 70–102; RESP 16–24; TEMP 97.7–101.1; O2SAT 90–95
[2024-09-25] MEDS: VANCOMYCIN LEVEL IV ONE (04:31)
[2024-09-25 05:19] LABS: BASOPHILS # (AUTO) 0.1 X10'3 (0-0.2); BASOPHILS % (AUTO) 0.5 % (0-1); EOSINOPHILS # (AUTO) 0.4 X10'3 (0-0.9); EOSINOPHILS % (AUTO) 3.5 % (0-6); HEMATOCRIT 23.6 % (42.0-52.0); HEMOGLOBIN 7.4 g/dl (14.0-17.9); LYMPHOCYTES # (AUTO) 0.7 X10'3 (1.1-4.8); LYMPHOCYTES % (AUTO) 5.9 % (21-51); MEAN CORPUSCULAR HEMOGLOBIN 26.2 PG (27.0-31.0); MEAN CORPUSCULAR HGB CONC 31.3 g/dL (33.0-36.5); MEAN CORPUSCULAR VOLUME 83.7 FL (78-98); MEAN PLATELET VOLUME 6.2 FL (7.4-10.4); MONOCYTES # (AUTO) 0.9 X10'3 (0-0.9); MONOCYTES % (AUTO) 7.3 % (2-12); NEUTROPHILS # (AUTO) 10.2 X10'3 (1.8-7.7); NEUTROPHILS % (AUTO) 82.8 % (42-75); PLATELET COUNT 430 X10'3 (140-440); RED BLOOD COUNT 2.82 X10'6 (4.70-6.10); RED CELL DISTRIBUTION WIDTH 18.1 % (11.5-14.5); WHITE BLOOD COUNT 12.3 X10'3 (4.5-11.0)
[2024-09-25 05:39] LABS: ALANINE AMINOTRANSFERASE 50 U/L (12-78); ALBUMIN 1.2 G/DL (3.4-5.0); ALBUMIN/GLOBULIN RATIO 0.2 (1.1-1.5); ALKALINE PHOSPHATASE 103 IU/L (46-116); ANION GAP 3 (8-16); ASPARTATE AMINO TRANSFERASE 36 U/L (10-37); BILIRUBIN,TOTAL 0.5 MG/DL (0.1-1.0); BLOOD UREA NITROGEN 19 MG/DL (7-18); BUN/CREATININE RATIO 20.9 (10.0-20.0); CHLORIDE 102 MMOL/L (99-107); CREATININE 0.91 MG/DL (0.60-1.10); GLUCOSE 101 MG/DL (70-104); POTASSIUM 4.2 MMOL/L (3.5-5.1); SODIUM 134 MMOL/L (135-145); TOTAL PROTEIN 6.8 G/DL (6.4-8.2); VANCOMYCIN,TROUGH 24.1 ug/mL (10.0-20.0); eCRCL 84 ML/MIN; eGFR 82 ML/MIN
[2024-09-25] MEDS: VANCOMYCIN/WATER FOR INJ (PEG) 1.5GM/300 ML IVPB IV SCH (17:41)
[2024-09-26] VITALS (22 sets, daily range): BP systolic 85–161; BP diastolic 39–89; PULSE 78–98; RESP 12–22; TEMP 97.9–98.8; O2SAT 91–98
[2024-09-26 05:19] LABS: BASOPHILS % (AUTO) 0.4 % (0-1); EOSINOPHILS # (AUTO) 0.4 X10'3 (0-0.9); EOSINOPHILS % (AUTO) 4.7 % (0-6); HEMATOCRIT 23.9 % (42.0-52.0); HEMOGLOBIN 7.6 g/dl (14.0-17.9); LYMPHOCYTES # (AUTO) 0.9 X10'3 (1.1-4.8); MEAN CORPUSCULAR HEMOGLOBIN 26.7 PG (27.0-31.0); MEAN CORPUSCULAR HGB CONC 31.8 g/dL (33.0-36.5); MEAN CORPUSCULAR VOLUME 83.8 FL (78-98); MEAN PLATELET VOLUME 6.2 FL (7.4-10.4); MONOCYTES % (AUTO) 10.8 % (2-12); NEUTROPHILS # (AUTO) 6.6 X10'3 (1.8-7.7); NEUTROPHILS % (AUTO) 74.1 % (42-75); PLATELET COUNT 438 X10'3 (140-440); RED BLOOD COUNT 2.85 X10'6 (4.70-6.10); RED CELL DISTRIBUTION WIDTH 18.4 % (11.5-14.5); WHITE BLOOD COUNT 8.9 X10'3 (4.5-11.0)
[2024-09-26 05:39] LABS: ALANINE AMINOTRANSFERASE 47 U/L (12-78); ALBUMIN 1.3 G/DL (3.4-5.0); ALBUMIN/GLOBULIN RATIO 0.2 (1.1-1.5); ALKALINE PHOSPHATASE 93 IU/L (46-116); ANION GAP 3 (8-16); ASPARTATE AMINO TRANSFERASE 42 U/L (10-37); BILIRUBIN,TOTAL 0.4 MG/DL (0.1-1.0); BLOOD UREA NITROGEN 23 MG/DL (7-18); BUN/CREATININE RATIO 28.8 (10.0-20.0); CALCIUM 8.1 MG/DL (8.5-10.1); CHLORIDE 105 MMOL/L (99-107); GLUCOSE 94 MG/DL (70-104); POTASSIUM 4.5 MMOL/L (3.5-5.1); SODIUM 138 MMOL/L (135-145); TOTAL CARBON DIOXIDE 30.3 MMOL/L (24-32); TOTAL PROTEIN 6.9 G/DL (6.4-8.2); eCRCL 96 ML/MIN; eGFR > 90 ML/MIN
[2024-09-26] MEDS ORDERED: ondansetron/PF 4mg/2ml inj IV PRN (08:25)
[2024-09-26] MEDS ORDERED: enalaprilat 1.25mg/ml 2ml vial IV PRN (08:25)
[2024-09-26] MEDS ORDERED: morphine 2 MG/ML inj. syringe IV PRN (08:25)
[2024-09-26] MEDS ORDERED: morphine 4 MG/ML inj SYRINge IV PRN (08:25)
[2024-09-26] MEDS: ringers solution, lacted 1,000 ML IV SCH (08:25)
[2024-09-26] MEDS ORDERED: fentaNYL/PF 50MCG/1 ML 2ML syringe IV PRN ×2 (08:25)
[2024-09-26] MEDS ORDERED: labetalol 20mg/4ml (5mg/ml) syringe IV PRN (08:25)
[2024-09-26] MEDS ORDERED: fentaNYL/PF 50MCG/1 ML 2ML syringe ONE (10:45)
[2024-09-26] MEDS ORDERED: MIDAZolam 1 MG/ML 5ML VIAL ONE (10:46)
[2024-09-26] MEDS ORDERED: BUPIVAcaine 0.5% inj/PF 30 ml vial ONE (11:21)
[2024-09-26] MEDS ORDERED: flumazenil 0.1 mg/ml inj. 10mL vial IV ONE ×2 (11:35→11:54)
[2024-09-26] MEDS ORDERED: ePHEDrine 50MG/ML INJ. ONE ×3 (11:50→11:55)
[2024-09-26] MEDS ORDERED: LIDOcaine 0.5% (5mg/ml) 50ml vial ONE (11:54)
[2024-09-26] MEDS ORDERED: naloxone 0.4 mg/ml inj ONE (11:54)
[2024-09-26] MEDS: albumin (Human) 5% 250ml 250 ML IV ONE (12:58)
[2024-09-26 13:02] LABS: ABG BASE EXCESS 1.1 mmol/L (-2.0-3.0); ABG HCO3 26.5 mmol/L (21.0-28.0); ABG OXYGEN SATURATION 91.3 % (94.0-98.0); ABG PCO2 (T) 45.1 mmHg (35.0-48.0); ABG PH (T) 7.384 (7.350-7.450); ABG PO2 (T) 63.1 mmHg (83.0-108.0); ALLEN'S TEST POSITIVE; FCOHb 1.3 % (0.5-1.5); FHHb 8.6 % (0.0-5.0); FLOW 6 L/min; FMetHb 0.3 % (0.0-1.5); FO2Hb 89.8 % (94.0-98.0); MODE NASAL CANNULA; PATIENT TEMPERATURE 36.5; TOTAL HEMOGLOBIN 8.2 G/dl (13.5-17.5)
[2024-09-26] MEDS: HYDROcodone/acetaminophen 10/325mg tab PO PRN (18:05)
[2024-09-27 03:07] VITALS: BP 111/58; PULSE 69; RESP 20; TEMP 98.6; O2SAT 95
[2024-09-27] MEDS: VANCOMYCIN LEVEL IV ONE (04:30)
[2024-09-27 06:00] VITALS: BP 112/64; PULSE 72; RESP 22; TEMP 98.5; O2SAT 96
[2024-09-27 08:00] VITALS: RESP 18; O2SAT 93
[2024-09-27 10:00] VITALS: BP 147/74; PULSE 71; RESP 20; TEMP 98.3; O2SAT 93
[2024-09-27] MEDS: VANCOMYCIN/WATER FOR INJ (PEG) 1.25GM/250 ML IVPB IV SCH (17:43)
[2024-09-27 18:00] VITALS: BP 134/62; PULSE 79; RESP 18; TEMP 98.2; O2SAT 95
[2024-09-27] MEDS: Dakins solution (1/4 strength) 473ml solution TP SCH (20:35)
[2024-09-27 22:00] VITALS: BP 120/61; PULSE 84; RESP 20; TEMP 98.9; O2SAT 93
[2024-09-28 05:59] LABS: BASOPHILS % (AUTO) 0.6 % (0-1); EOSINOPHILS # (AUTO) 0.5 X10'3 (0-0.9); EOSINOPHILS % (AUTO) 5.8 % (0-6); HEMATOCRIT 24.9 % (42.0-52.0); LYMPHOCYTES % (AUTO) 11.5 % (21-51); MEAN CORPUSCULAR HEMOGLOBIN 27.2 PG (27.0-31.0); MEAN CORPUSCULAR HGB CONC 32.2 g/dL (33.0-36.5); MEAN CORPUSCULAR VOLUME 84.5 FL (78-98); MEAN PLATELET VOLUME 5.9 FL (7.4-10.4); MONOCYTES # (AUTO) 0.7 X10'3 (0-0.9); NEUTROPHILS # (AUTO) 6.5 X10'3 (1.8-7.7); NEUTROPHILS % (AUTO) 74.1 % (42-75); PLATELET COUNT 373 X10'3 (140-440); RED BLOOD COUNT 2.95 X10'6 (4.70-6.10); RED CELL DISTRIBUTION WIDTH 18.6 % (11.5-14.5); WHITE BLOOD COUNT 8.8 X10'3 (4.5-11.0)
[2024-09-28 06:00] VITALS: BP 121/64; PULSE 73; RESP 18; TEMP 97.7; O2SAT 90
[2024-09-28 06:14] LABS: ALANINE AMINOTRANSFERASE 51 U/L (12-78); ALBUMIN 1.5 G/DL (3.4-5.0); ALBUMIN/GLOBULIN RATIO 0.3 (1.1-1.5); ALKALINE PHOSPHATASE 87 IU/L (46-116); ANION GAP 3 (8-16); ASPARTATE AMINO TRANSFERASE 45 U/L (10-37); BILIRUBIN,TOTAL 0.4 MG/DL (0.1-1.0); BLOOD UREA NITROGEN 21 MG/DL (7-18); BUN/CREATININE RATIO 26.3 (10.0-20.0); CALCIUM 8.2 MG/DL (8.5-10.1); CHLORIDE 109 MMOL/L (99-107); GLUCOSE 111 MG/DL (70-104); POTASSIUM 4.3 MMOL/L (3.5-5.1); SODIUM 141 MMOL/L (135-145); TOTAL CARBON DIOXIDE 29.5 MMOL/L (24-32); TOTAL PROTEIN 6.9 G/DL (6.4-8.2); eCRCL 96 ML/MIN; eGFR > 90 ML/MIN
[2024-09-28] MEDS: aspirin 81mg, enteric-coated 1 TAB TABLET.DR PO SCH (09:12)
[2024-09-28] MEDS: atorvastatin 20mg tablet PO SCH (09:13)
[2024-09-28] MEDS: apixaban 5mg tablet PO SCH (09:13)
[2024-09-28 10:00] VITALS: BP 121/58; PULSE 79; RESP 16; TEMP 98.3; O2SAT 94
[2024-09-28 18:00] VITALS: BP 131/65; PULSE 77; RESP 18; TEMP 97.8; O2SAT 90
[2024-09-28] MEDS: VANCOMYCIN/WATER FOR INJ (PEG) 1.25GM/250 ML IVPB IV SCH (18:00)
[2024-09-28 22:00] VITALS: BP 146/77; PULSE 79; RESP 14; TEMP 98.5; O2SAT 95
[2024-09-29] MEDS: VANCOMYCIN LEVEL IV ONE (04:30)
[2024-09-29 06:00] VITALS: BP 141/74; PULSE 72; RESP 15; TEMP 98; O2SAT 96
[2024-09-29 06:38] LABS: BASOPHILS % (AUTO) 0.4 % (0-1); EOSINOPHILS # (AUTO) 0.4 X10'3 (0-0.9); HEMATOCRIT 24.4 % (42.0-52.0); HEMOGLOBIN 7.8 g/dl (14.0-17.9); LYMPHOCYTES % (AUTO) 10.8 % (21-51); MEAN CORPUSCULAR HEMOGLOBIN 26.9 PG (27.0-31.0); MEAN CORPUSCULAR HGB CONC 31.8 g/dL (33.0-36.5); MEAN CORPUSCULAR VOLUME 84.7 FL (78-98); MEAN PLATELET VOLUME 6.2 FL (7.4-10.4); MONOCYTES # (AUTO) 0.7 X10'3 (0-0.9); MONOCYTES % (AUTO) 7.2 % (2-12); NEUTROPHILS # (AUTO) 7.4 X10'3 (1.8-7.7); NEUTROPHILS % (AUTO) 77.6 % (42-75); PLATELET COUNT 326 X10'3 (140-440); RED BLOOD COUNT 2.89 X10'6 (4.70-6.10); WHITE BLOOD COUNT 9.5 X10'3 (4.5-11.0)
[2024-09-29 07:48] LABS: ALANINE AMINOTRANSFERASE 38 U/L (12-78); ALBUMIN 1.4 G/DL (3.4-5.0); ALBUMIN/GLOBULIN RATIO 0.3 (1.1-1.5); ALKALINE PHOSPHATASE 83 IU/L (46-116); ANION GAP 6 (8-16); ASPARTATE AMINO TRANSFERASE 37 U/L (10-37); BILIRUBIN,TOTAL 0.4 MG/DL (0.1-1.0); BLOOD UREA NITROGEN 20 MG/DL (7-18); BUN/CREATININE RATIO 24.4 (10.0-20.0); CALCIUM 8.2 MG/DL (8.5-10.1); CHLORIDE 107 MMOL/L (99-107); CREATININE 0.82 MG/DL (0.60-1.10); GLUCOSE 111 MG/DL (70-104); POTASSIUM 4.1 MMOL/L (3.5-5.1); SODIUM 139 MMOL/L (135-145); TOTAL CARBON DIOXIDE 26.2 MMOL/L (24-32); VANCOMYCIN,TROUGH 21.9 ug/mL (10.0-20.0); eCRCL 93 ML/MIN; eGFR > 90 ML/MIN
[2024-09-29] MEDS ORDERED: CEFD300C3 PO (08:11)
[2024-09-29 10:00] VITALS: BP 137/68; PULSE 83; RESP 18; TEMP 98.4; O2SAT 91
[2024-09-29] MEDS: CefTRIAXone 2gm/D5W 50ml BAG 50 ML IV SCH (11:43)
[2024-09-29 18:00] VITALS: BP 151/75; PULSE 73; RESP 16; TEMP 97.7; O2SAT 90
[2024-09-29 22:00] VITALS: BP 122/65; PULSE 77; RESP 16; TEMP 98.9; O2SAT 93
[2024-09-30 06:00] VITALS: BP 147/80; PULSE 80; RESP 16; TEMP 98; O2SAT 93
[2024-09-30 06:50] LABS: BASOPHILS % (AUTO) 0.4 % (0-1); EOSINOPHILS # (AUTO) 0.3 X10'3 (0-0.9); EOSINOPHILS % (AUTO) 2.2 % (0-6); HEMOGLOBIN 7.8 g/dl (14.0-17.9); LYMPHOCYTES # (AUTO) 1.1 X10'3 (1.1-4.8); LYMPHOCYTES % (AUTO) 8.2 % (21-51); MEAN CORPUSCULAR HEMOGLOBIN 26.4 PG (27.0-31.0); MEAN CORPUSCULAR HGB CONC 31.4 g/dL (33.0-36.5); MEAN CORPUSCULAR VOLUME 84.2 FL (78-98); MEAN PLATELET VOLUME 6.4 FL (7.4-10.4); MONOCYTES % (AUTO) 7.2 % (2-12); NEUTROPHILS # (AUTO) 10.9 X10'3 (1.8-7.7); PLATELET COUNT 329 X10'3 (140-440); RED BLOOD COUNT 2.97 X10'6 (4.70-6.10); WHITE BLOOD COUNT 13.3 X10'3 (4.5-11.0)
[2024-09-30 07:29] LABS: ALANINE AMINOTRANSFERASE 42 U/L (12-78); ALBUMIN 1.5 G/DL (3.4-5.0); ALBUMIN/GLOBULIN RATIO 0.3 (1.1-1.5); ALKALINE PHOSPHATASE 90 IU/L (46-116); ANION GAP 5 (8-16); ASPARTATE AMINO TRANSFERASE 37 U/L (10-37); BILIRUBIN,TOTAL 0.4 MG/DL (0.1-1.0); BLOOD UREA NITROGEN 20 MG/DL (7-18); BUN/CREATININE RATIO 32.8 (10.0-20.0); CALCIUM 8.5 MG/DL (8.5-10.1); CHLORIDE 109 MMOL/L (99-107); CREATININE 0.61 MG/DL (0.60-1.10); GLUCOSE 102 MG/DL (70-104); POTASSIUM 4.1 MMOL/L (3.5-5.1); SODIUM 143 MMOL/L (135-145); TOTAL CARBON DIOXIDE 28.7 MMOL/L (24-32); eCRCL 126 ML/MIN; eGFR > 90 ML/MIN
[2024-09-30 10:00] VITALS: BP 133/69; PULSE 88; RESP 20; TEMP 98.4; O2SAT 91
[2024-09-30] MEDS ORDERED: LOSA50TA64 PO (11:24)
[2024-09-30 12:00] VITALS: RESP 20; O2SAT 91
[2024-09-30] MEDS: losartan 50mg tablet PO ONE (12:13)
[2024-09-30 12:15] VITALS: BP_SYST 133; PULSE 88
[2024-09-30] MEDS: losartan 50mg tablet PO SCH (12:15)
== END 2024-09-30 17:35 | DRG 853 ==
LOC: ER 17:30 → ORTHO 4S 21:54
PROVIDERS: ADMIT Internal Medicine Pulmonary Disease; ATTEND Family Medicine
PROC: 0JB70ZZ Excision of Back Subcutaneous Tissue and Fascia, Open Approach (ICD-10-PCS; principal; 2024-09-26 11:21)
DX: A41.9 Sepsis, unspecified organism (principal); L89.153 Pressure ulcer of sacral region, stage 3; E44.1 Mild protein-calorie malnutrition; Z68.43 Body mass index [BMI] 50.0-59.9, adult; L03.317 Cellulitis of buttock; I48.91 Unspecified atrial fibrillation; I12.9 Hypertensive chronic kidney disease with stage 1 through stage 4 chronic kidney disease, or unspecified chronic kidney disease; N18.9 Chronic kidney disease, unspecified; G47.33 Obstructive sleep apnea (adult) (pediatric); E66.01 Morbid (severe) obesity due to excess calories; Z79.899 Other long term (current) drug therapy; I25.2 Old myocardial infarction
CPT/HCPCS: 36415; 36600; 71045; 72131; 72192; 80048; 80053; 80076; 80202; 81001; 82803; 82948; 83605; 83735; 84100; 84145; 85018; 85025; 85610; 85651; 85730; 86140; 87040; 87070; 87075; 87077; 87081; 87186; 93005; 94760; 97161; 97530; 99285; A4314; A4615; A4618; A4649; A6196; A6213; A6223; A6250; A6253; A6258; A6260; A6402; A6446; A6449; A6590; A7000; G0378; J0665; J0696; J2250; J2270; J2310; J2371; J2543; J3010; J3370; J3372; J3490; J7030; J7040; J7120; P9045

== ENCOUNTER 2024-11-11 13:36 | Inpatient (IN) | payer OTHER, MEDICARE, MEDICAID ==
[~2024-11-11] VITALS: Ht 185.4 cm; Wt 157.0 kg
[~2024-11-11 13:36] MED LIST changes: +ACET-890 PO; -ALBU6.7H14 INH; +APIX5TAB3 PO; +ASPI81TA52 PO; +ATOR-429 PO; +BISA10SU60 RC; +CEFD300C3 PO; +DOXY-460 PO; +FERR325T28 PO; -FURO40TA4 PO; +HYDR-3965 PO; -HYDR-3972; +LOSA50TA64 PO; +MAGN400O6 PO; +METO50TA16 PO; -NAPR-56 PO; +NITR0.4T51 SL; -POTA-207 PO
[2024-11-11 14:35] LABS: BASOPHILS # (AUTO) 0.1 X10'3 (0-0.2); BASOPHILS % (AUTO) 0.7 % (0-1); EOSINOPHILS # (AUTO) 0.6 X10'3 (0-0.9); EOSINOPHILS % (AUTO) 6.8 % (0-6); HEMATOCRIT 32.5 % (42.0-52.0); HEMOGLOBIN 10.4 g/dl (14.0-17.9); LYMPHOCYTES # (AUTO) 0.8 X10'3 (1.1-4.8); LYMPHOCYTES % (AUTO) 8.8 % (21-51); MEAN CORPUSCULAR HEMOGLOBIN 26.6 PG (27.0-31.0); MEAN CORPUSCULAR HGB CONC 31.9 g/dL (33.0-36.5); MEAN CORPUSCULAR VOLUME 83.2 FL (78-98); MEAN PLATELET VOLUME 6.9 FL (7.4-10.4); MONOCYTES % (AUTO) 10.2 % (2-12); NEUTROPHILS # (AUTO) 7.1 X10'3 (1.8-7.7); NEUTROPHILS % (AUTO) 73.5 % (42-75); PLATELET COUNT 372 X10'3 (140-440); RED CELL DISTRIBUTION WIDTH 20.8 % (11.5-14.5); WHITE BLOOD COUNT 9.6 X10'3 (4.5-11.0)
[2024-11-11] MEDS: normal saline 1000ml 1,000 ML IV SCH ×2 (14:39→22:50)
[2024-11-11 14:54] LABS: ALANINE AMINOTRANSFERASE 16 U/L (12-78); ALBUMIN 2.4 G/DL (3.4-5.0); ALBUMIN/GLOBULIN RATIO 0.4 (1.1-1.5); ALKALINE PHOSPHATASE 86 IU/L (46-116); ANION GAP 8 (8-16); APTT 32 SECONDS (22-32); ASPARTATE AMINO TRANSFERASE 23 U/L (10-37); BILIRUBIN,TOTAL 0.4 MG/DL (0.1-1.0); BLOOD UREA NITROGEN 24 MG/DL (7-18); BUN/CREATININE RATIO 27.6 (10.0-20.0); CALCIUM 8.7 MG/DL (8.5-10.1); CHLORIDE 105 MMOL/L (99-107); CREATININE 0.87 MG/DL (0.60-1.10); GLUCOSE 126 MG/DL (70-104); INR 1.1 INR; POTASSIUM 4.1 MMOL/L (3.5-5.1); PROTHROMBIN TIME 11.9 SECONDS (9.0-12.0); SODIUM 140 MMOL/L (135-145); TOTAL CARBON DIOXIDE 26.9 MMOL/L (24-32); TOTAL PROTEIN 7.8 G/DL (6.4-8.2); eCRCL 88 ML/MIN; eGFR 87 ML/MIN
[2024-11-11 15:03] LABS: MAGNESIUM 1.9 MG/DL (1.5-2.4); PRO BRAIN NATRIURETIC PEPTIDE 128 PG/ML (0-125)
[2024-11-11 15:18] LABS: ANISOCYTOSIS 3+; PLATELET ESTIMATE NORMAL
[2024-11-11] MEDS: bisacodyl 10mg suppository rectal RC STA (16:39)
[2024-11-11 17:44] LABS: BILIRUBIN,URINE NEGATIVE (Neg); CLARITY,URINE CLEAR (Clear); COLOR,URINE YELLOW (Yellow); GLUCOSE, URINE NEGATIVE (Neg); KETONES,URINE NEGATIVE (Neg); LEUKOCYTE ESTERASE ,URINE MODERATE (Neg); NITRITES, URINE POSITIVE (Neg); OCCULT BLOOD,URINE SMALL (Neg); PROTEIN,URINE TRACE mg/dl (Neg); UROBILINOGEN,URINE 0.2 E.U/dL (0.2-1.0)
[2024-11-11 17:57] LABS: UA COLLECTION TYPE CLN CATCH MIDSTREAM
[2024-11-11 17:59] LABS: WBC,URINE 30-50 /HPF (0-4)
[2024-11-11 18:00] LABS: AMORPHOUS URATES 1+; BACTERIA,URINE 4+ /HPF (Neg); SQUAMOUS EPITHELIAL CELL,UR FEW /LPF (FEW)
[2024-11-11] MEDS: CefTRIAXone 2gm/D5W 50ml BAG 50 ML IV ONE (18:08)
[2024-11-11] MEDS ORDERED: magnesium sulf-water 4G/100mL 100 ML IV PRN (20:10)
[2024-11-11] MEDS ORDERED: acetaminophen 325mg tablet PO PRN (20:10)
[2024-11-11] MEDS ORDERED: magnesium hydroxide 30ml (MOM) UD suspension PO PRN (20:10)
[2024-11-11] MEDS ORDERED: ondansetron/PF 4mg/2ml inj IV PRN (20:10)
[2024-11-11] MEDS ORDERED: potassium Cl 40MEQ/1/2NS 520ml 520 ML IV PRN (20:10)
[2024-11-11] MEDS ORDERED: magnesium sulf-water 2g/50mL 50 ML IV PRN (20:10)
[2024-11-11] MEDS ORDERED: magnesium Cl slow-release 64mg tablet PO PRN (20:10)
[2024-11-11] MEDS ORDERED: potassium Cl 20 mEq SR tablet PO PRN ×2 (20:10)
[2024-11-11] MEDS ORDERED: mag hydrox/Alum hydrox/simeth 30ml oral suspension PO PRN (20:10)
[2024-11-11] MEDS: PERFLUTREN PROTEIN-A MICROSPHR (Optison) 0.22 MG/ML 3ML VIAL IV ONE (21:05)
[2024-11-11] MEDS ORDERED: nitroGLYCERIN 0.4mg SUBLingual tab SL PRN (21:15)
[2024-11-11] MEDS: losartan 50mg tablet PO SCH (22:29)
[2024-11-11 23:49] LABS: URINE AMPHETAMINE SCREEN NEGATIVE (Neg); URINE BARBITUATE SCREEN NEGATIVE (Neg); URINE BENZODIAZEPINES SCREEN NEGATIVE (Neg); URINE CANNABINOID SCREEN NEGATIVE (Neg); URINE COCAINE SCREEN NEGATIVE (Neg); URINE METHADONE SCREEN NEGATIVE (Neg); URINE OPIATE SCREEN POSITIVE (Neg); URINE PHENCYCLIDINE SCREEN NEGATIVE (Neg)
[2024-11-12] VITALS (8 sets, daily range): BP systolic 111–144; BP diastolic 48–74; PULSE 65–77; RESP 13–21; TEMP 97.9–98.7; O2SAT 96–98
[2024-11-12 03:38] LABS: BASOPHILS % (AUTO) 0.5 % (0-1); EOSINOPHILS # (AUTO) 0.5 X10'3 (0-0.9); EOSINOPHILS % (AUTO) 6.6 % (0-6); HEMOGLOBIN 9.5 g/dl (14.0-17.9); LYMPHOCYTES # (AUTO) 0.9 X10'3 (1.1-4.8); LYMPHOCYTES % (AUTO) 10.7 % (21-51); MEAN CORPUSCULAR HEMOGLOBIN 26.5 PG (27.0-31.0); MEAN CORPUSCULAR HGB CONC 31.7 g/dL (33.0-36.5); MEAN CORPUSCULAR VOLUME 83.5 FL (78-98); MEAN PLATELET VOLUME 6.3 FL (7.4-10.4); MONOCYTES # (AUTO) 0.9 X10'3 (0-0.9); MONOCYTES % (AUTO) 10.9 % (2-12); NEUTROPHILS # (AUTO) 5.7 X10'3 (1.8-7.7); NEUTROPHILS % (AUTO) 71.3 % (42-75); PLATELET COUNT 306 X10'3 (140-440); RED CELL DISTRIBUTION WIDTH 20.9 % (11.5-14.5)
[2024-11-12 03:53] LABS: ALANINE AMINOTRANSFERASE 19 U/L (12-78); ALBUMIN 2.1 G/DL (3.4-5.0); ALBUMIN/GLOBULIN RATIO 0.4 (1.1-1.5); ALKALINE PHOSPHATASE 76 IU/L (46-116); ANION GAP 6 (8-16); ASPARTATE AMINO TRANSFERASE 23 U/L (10-37); BILIRUBIN,TOTAL 0.3 MG/DL (0.1-1.0); BLOOD UREA NITROGEN 20 MG/DL (7-18); BUN/CREATININE RATIO 26.3 (10.0-20.0); CALCIUM 8.4 MG/DL (8.5-10.1); CHLORIDE 108 MMOL/L (99-107); CREATININE 0.76 MG/DL (0.60-1.10); GLUCOSE 94 MG/DL (70-104); MAGNESIUM 1.7 MG/DL (1.5-2.4); PHOSPHORUS 3.6 MG/DL (2.3-4.5); POTASSIUM 3.8 MMOL/L (3.5-5.1); SODIUM 143 MMOL/L (135-145); TOTAL CARBON DIOXIDE 28.8 MMOL/L (24-32); eCRCL 101 ML/MIN; eGFR > 90 ML/MIN
[2024-11-12] MEDS: K and/or MAG REPLACEMENT MC SCH (07:47)
[2024-11-12] MEDS: CefTRIAXone/D5W-Rocephin 1gm 50 ML IV SCH (08:22)
[2024-11-12] MEDS: ferrous sulfate 325mg tablet PO SCH (08:23)
[2024-11-12] MEDS: apixaban 5mg tablet PO SCH (08:23)
[2024-11-12] MEDS: metoprolol tartrate 50mg tablet PO SCH (08:23)
[2024-11-12] MEDS: docusate sod 100mg capsule PO SCH (08:23)
[2024-11-12] MEDS: aspirin 81mg, enteric-coated 1 TAB TABLET.DR PO SCH (08:24)
[2024-11-12] MEDS: HYDROcodone/acetaminophen 5mg/325mg tablet PO PRN (09:56)
[2024-11-12] MEDS ORDERED: CefTRIAXone/D5W-Rocephin 1gm 50 ML IV SCH (14:30)
[2024-11-12] MEDS: atorvastatin 20mg tablet PO SCH (19:12)
[2024-11-13] MEDS: Dakins solution (1/4 strength) 473ml solution TP SCH (05:26)
[2024-11-13 06:00] VITALS: BP 139/84; PULSE 73; RESP 16; TEMP 97.9; O2SAT 93
[2024-11-13 06:15] LABS: ALANINE AMINOTRANSFERASE 14 U/L (12-78); ALBUMIN 1.9 G/DL (3.4-5.0); ALBUMIN/GLOBULIN RATIO 0.4 (1.1-1.5); ALKALINE PHOSPHATASE 69 IU/L (46-116); ANION GAP 8 (8-16); ASPARTATE AMINO TRANSFERASE 21 U/L (10-37); BILIRUBIN,TOTAL 0.3 MG/DL (0.1-1.0); BLOOD UREA NITROGEN 17 MG/DL (7-18); BUN/CREATININE RATIO 26.6 (10.0-20.0); CALCIUM 8.3 MG/DL (8.5-10.1); CHLORIDE 108 MMOL/L (99-107); CREATININE 0.64 MG/DL (0.60-1.10); GLUCOSE 81 MG/DL (70-104); MAGNESIUM 1.7 MG/DL (1.5-2.4); PHOSPHORUS 3.6 MG/DL (2.3-4.5); POTASSIUM 3.8 MMOL/L (3.5-5.1); SODIUM 141 MMOL/L (135-145); TOTAL CARBON DIOXIDE 25.5 MMOL/L (24-32); TOTAL PROTEIN 6.5 G/DL (6.4-8.2); eCRCL 120 ML/MIN; eGFR > 90 ML/MIN
[2024-11-13 06:22] LABS: BASOPHILS % (AUTO) 0.5 % (0-1); EOSINOPHILS # (AUTO) 0.8 X10'3 (0-0.9); EOSINOPHILS % (AUTO) 9.7 % (0-6); HEMATOCRIT 29.5 % (42.0-52.0); HEMOGLOBIN 9.4 g/dl (14.0-17.9); LYMPHOCYTES # (AUTO) 0.9 X10'3 (1.1-4.8); LYMPHOCYTES % (AUTO) 11.6 % (21-51); MEAN CORPUSCULAR HEMOGLOBIN 26.9 PG (27.0-31.0); MEAN CORPUSCULAR VOLUME 84.2 FL (78-98); MONOCYTES # (AUTO) 0.7 X10'3 (0-0.9); MONOCYTES % (AUTO) 8.5 % (2-12); NEUTROPHILS # (AUTO) 5.5 X10'3 (1.8-7.7); NEUTROPHILS % (AUTO) 69.7 % (42-75); PLATELET COUNT 291 X10'3 (140-440); RED CELL DISTRIBUTION WIDTH 20.5 % (11.5-14.5); WHITE BLOOD COUNT 7.8 X10'3 (4.5-11.0)
[2024-11-13 08:00] VITALS: BP_SYST 121; BP_SYST 132; BP_DIAS 56; BP_DIAS 63; PULSE 76; PULSE 78
[2024-11-13] MEDS: JUVEN Smoothie Arginine/Glut./Ca2+Bmb (Juven 19.3pkt) 240ml cup PO SCH (08:00)
[2024-11-13 09:15] VITALS: RESP 16; O2SAT 93
[2024-11-13 10:00] VITALS: BP 132/56; PULSE 76; RESP 18; TEMP 98.2; O2SAT 96
[2024-11-13] MEDS: lactose-reduced food (Ensure Enlive) - 237ml bottle PO SCH (12:30)
== END 2024-11-13 16:00 | DRG 690 ==
LOC: ER 13:37 → ED HOLD 20:11 → EDBEDREQ 11-12 05:26 → ORTHO 4S 11-12 14:45
PROVIDERS: ADMIT Surgery Surgical Critical Care; ATTEND Internal Medicine
DX: N39.0 Urinary tract infection, site not specified (principal); Z68.42 Body mass index [BMI] 45.0-49.9, adult; E86.0 Dehydration; I12.9 Hypertensive chronic kidney disease with stage 1 through stage 4 chronic kidney disease, or unspecified chronic kidney disease; I25.2 Old myocardial infarction; E66.01 Morbid (severe) obesity due to excess calories; I48.91 Unspecified atrial fibrillation; N18.9 Chronic kidney disease, unspecified; G89.29 Other chronic pain
CPT/HCPCS: 36415; 70450; 71045; 80053; 80305; 81001; 83605; 83735; 83880; 84100; 84145; 85008; 85025; 85610; 85730; 87040; 87077; 87081; 87088; 87186; 93005; 93306; 93880; 96365; 97110; 97162; 97530; 99285; A4615; A6196; A6250; A6253; A6449; A6590; G0378; J0696; J7030

== ENCOUNTER 2024-11-15 15:21 | Inpatient (IN) | payer OTHER, MEDICARE, MEDICAID ==
[~2024-11-15] VITALS: Ht 188 cm; Wt 154.5 kg
[2024-11-15 16:41] LABS: BASOPHILS % (AUTO) 0.4 % (0-1); EOSINOPHILS # (AUTO) 0.8 X10'3 (0-0.9); EOSINOPHILS % (AUTO) 7.3 % (0-6); HEMATOCRIT 31.8 % (42.0-52.0); LYMPHOCYTES # (AUTO) 1.1 X10'3 (1.1-4.8); LYMPHOCYTES % (AUTO) 10.4 % (21-51); MEAN CORPUSCULAR HEMOGLOBIN 26.1 PG (27.0-31.0); MEAN CORPUSCULAR HGB CONC 31.4 g/dL (33.0-36.5); MEAN CORPUSCULAR VOLUME 82.9 FL (78-98); MEAN PLATELET VOLUME 6.4 FL (7.4-10.4); MONOCYTES # (AUTO) 0.9 X10'3 (0-0.9); MONOCYTES % (AUTO) 8.4 % (2-12); NEUTROPHILS # (AUTO) 7.9 X10'3 (1.8-7.7); NEUTROPHILS % (AUTO) 73.5 % (42-75); PLATELET COUNT 312 X10'3 (140-440); RED BLOOD COUNT 3.83 X10'6 (4.70-6.10); RED CELL DISTRIBUTION WIDTH 20.1 % (11.5-14.5); WHITE BLOOD COUNT 10.7 X10'3 (4.5-11.0)
[2024-11-15 16:53] LABS: ALBUMIN 2.2 G/DL (3.4-5.0); ANION GAP 5 (8-16); BLOOD UREA NITROGEN 16 MG/DL (7-18); BUN/CREATININE RATIO 23.5 (10.0-20.0); CALCIUM 8.5 MG/DL (8.5-10.1); CHLORIDE 106 MMOL/L (99-107); CREATININE 0.68 MG/DL (0.60-1.10); GLUCOSE 101 MG/DL (70-104); POTASSIUM 3.7 MMOL/L (3.5-5.1); SODIUM 141 MMOL/L (135-145); TOTAL CARBON DIOXIDE 30.3 MMOL/L (24-32); eCRCL 116 ML/MIN; eGFR > 90 ML/MIN
[2024-11-15] MEDS: MEROPENEM 1GM/NACL 50ML IVPB 50 ML IV ONE (18:35)
[2024-11-15] MEDS ORDERED: POLY119P2 PO (20:10)
[2024-11-15] MEDS ORDERED: GABA300T26 PO (20:11)
[2024-11-15] MEDS ORDERED: VITC500T PO (20:12)
[2024-11-15 22:00] VITALS: BP 136/81; PULSE 84; RESP 19; TEMP 98.7; O2SAT 93
[2024-11-15] MEDS ORDERED: acetaminophen 325mg tablet PO PRN ×2 (22:50→23:00)
[2024-11-15] MEDS ORDERED: potassium Cl 20 mEq SR tablet PO PRN ×2 (22:50)
[2024-11-15] MEDS ORDERED: morphine 2 MG/ML inj. syringe IV PRN ×2 (22:50)
[2024-11-15] MEDS ORDERED: magnesium hydroxide 30ml (MOM) UD suspension PO PRN ×2 (22:50→23:00)
[2024-11-15] MEDS ORDERED: mag hydrox/Alum hydrox/simeth 30ml oral suspension PO PRN (22:50)
[2024-11-15] MEDS ORDERED: magnesium sulf-water 2g/50mL 50 ML IV PRN (22:50)
[2024-11-15] MEDS ORDERED: potassium Cl 40MEQ/1/2NS 520ml 520 ML IV PRN (22:50)
[2024-11-15] MEDS ORDERED: docusate sod 100mg capsule PO PRN (22:50)
[2024-11-15] MEDS ORDERED: magnesium Cl slow-release 64mg tablet PO PRN (22:50)
[2024-11-15] MEDS ORDERED: magnesium sulf-water 4G/100mL 100 ML IV PRN (22:50)
[2024-11-15] MEDS ORDERED: bisacodyl 10mg suppository rectal RC PRN (23:00)
[2024-11-15] MEDS ORDERED: nitroGLYCERIN 0.4mg SUBLingual tab SL PRN (23:00)
[2024-11-15 23:19] LABS: HEMOGLOBIN A1C 4.8 % (4.5-6.2)
[2024-11-16] VITALS (9 sets, daily range): BP systolic 109–130; BP diastolic 35–74; PULSE 74–89; RESP 16–22; TEMP 97.7–98.4; O2SAT 92–100
[2024-11-16] MEDS: ondansetron/PF 4mg/2ml inj IV PRN (00:38)
[2024-11-16] MEDS: MEROPENEM 1GM/NACL 50ML IVPB 50 ML IV SCH (00:41)
[2024-11-16 04:44] LABS: BASOPHILS # (AUTO) 0.1 X10'3 (0-0.2); BASOPHILS % (AUTO) 0.5 % (0-1); EOSINOPHILS # (AUTO) 0.7 X10'3 (0-0.9); EOSINOPHILS % (AUTO) 6.7 % (0-6); HEMATOCRIT 32.4 % (42.0-52.0); HEMOGLOBIN 10.3 g/dl (14.0-17.9); LYMPHOCYTES # (AUTO) 1.1 X10'3 (1.1-4.8); LYMPHOCYTES % (AUTO) 10.3 % (21-51); MEAN CORPUSCULAR HEMOGLOBIN 26.4 PG (27.0-31.0); MEAN CORPUSCULAR HGB CONC 31.9 g/dL (33.0-36.5); MEAN CORPUSCULAR VOLUME 82.6 FL (78-98); MEAN PLATELET VOLUME 6.6 FL (7.4-10.4); MONOCYTES # (AUTO) 0.9 X10'3 (0-0.9); MONOCYTES % (AUTO) 8.8 % (2-12); NEUTROPHILS # (AUTO) 7.8 X10'3 (1.8-7.7); NEUTROPHILS % (AUTO) 73.7 % (42-75); PLATELET COUNT 328 X10'3 (140-440); RED BLOOD COUNT 3.92 X10'6 (4.70-6.10); RED CELL DISTRIBUTION WIDTH 20.3 % (11.5-14.5); WHITE BLOOD COUNT 10.6 X10'3 (4.5-11.0)
[2024-11-16 05:09] LABS: ANISOCYTOSIS 2+; POIKILOCYTOSIS FEW
[2024-11-16 05:11] LABS: ALANINE AMINOTRANSFERASE 14 U/L (12-78); ALBUMIN 2.2 G/DL (3.4-5.0); ALBUMIN/GLOBULIN RATIO 0.4 (1.1-1.5); ALKALINE PHOSPHATASE 76 IU/L (46-116); ANION GAP 6 (8-16); ASPARTATE AMINO TRANSFERASE 16 U/L (10-37); BILIRUBIN,TOTAL 0.3 MG/DL (0.1-1.0); BLOOD UREA NITROGEN 15 MG/DL (7-18); BUN/CREATININE RATIO 20.5 (10.0-20.0); CALCIUM 8.6 MG/DL (8.5-10.1); CHLORIDE 106 MMOL/L (99-107); CREATININE 0.73 MG/DL (0.60-1.10); GLUCOSE 95 MG/DL (70-104); MAGNESIUM 1.8 MG/DL (1.5-2.4); POTASSIUM 3.6 MMOL/L (3.5-5.1); SODIUM 141 MMOL/L (135-145); TOTAL CARBON DIOXIDE 28.8 MMOL/L (24-32); TOTAL PROTEIN 7.2 G/DL (6.4-8.2); eCRCL 108 ML/MIN; eGFR > 90 ML/MIN
[2024-11-16] MEDS: polyethylene glycol 3350 17gm powd pack PO SCH (08:00)
[2024-11-16] MEDS ORDERED: heparin, porcine 5000 units/ml vial SQ SCH (08:00)
[2024-11-16] MEDS: K and/or MAG REPLACEMENT MC SCH (08:00)
[2024-11-16] MEDS: apixaban 5mg tablet PO SCH (08:41)
[2024-11-16] MEDS: ascorbic acid 500mg tablet PO SCH (08:41)
[2024-11-16] MEDS: aspirin 81mg, enteric-coated 1 TAB TABLET.DR PO SCH (08:43)
[2024-11-16] MEDS: metoprolol tartrate 50mg tablet PO SCH (08:43)
[2024-11-16] MEDS: ferrous sulfate 325mg tablet PO SCH (08:44)
[2024-11-16] MEDS: losartan 50mg tablet PO SCH (08:44)
[2024-11-16 11:00] LABS: C DIFF ANTIGEN POSITIVE (NEGATIVE); C DIFF SPECIMEN=DIARRHEA? ACCEPTABLE; C DIFFICILE TOXINS A&B POSITIVE (Neg)
[2024-11-16] MEDS ORDERED: vancomycin 125 MG/5 ML UD oral SOLN.RECON 5mL oral syringe (FIRVANQ) PO SCH (11:35)
[2024-11-16] MEDS: HYDROcodone/acetaminophen 5mg/325mg tablet PO PRN (12:01)
[2024-11-16] MEDS ORDERED: ertapenem sod inj 1 GM in normal saline 100ml IV soln 100 ML IV SCH (12:05)
[2024-11-16] MEDS ORDERED: ertapenem sod inj 1 GM in normal saline 100ml IV soln 110 ML IV SCH (12:28)
[2024-11-16] MEDS: vancomycin 125 MG/5 ML UD oral SOLN.RECON 5mL oral syringe (FIRVANQ) PO SCH (13:52)
[2024-11-16] MEDS: JUVEN Smoothie Arginine/Glut./Ca2+Bmb (Juven 19.3pkt) 240ml cup PO SCH (17:30)
[2024-11-16] MEDS: atorvastatin 20mg tablet PO SCH (20:56)
[2024-11-17 04:52] LABS: BASOPHILS # (AUTO) 0.1 X10'3 (0-0.2); BASOPHILS % (AUTO) 0.5 % (0-1); EOSINOPHILS # (AUTO) 0.7 X10'3 (0-0.9); EOSINOPHILS % (AUTO) 7.8 % (0-6); LYMPHOCYTES # (AUTO) 1.3 X10'3 (1.1-4.8); LYMPHOCYTES % (AUTO) 13.8 % (21-51); MEAN CORPUSCULAR HEMOGLOBIN 26.3 PG (27.0-31.0); MEAN CORPUSCULAR VOLUME 84.8 FL (78-98); MONOCYTES # (AUTO) 0.7 X10'3 (0-0.9); MONOCYTES % (AUTO) 8.1 % (2-12); NEUTROPHILS # (AUTO) 6.4 X10'3 (1.8-7.7); NEUTROPHILS % (AUTO) 69.8 % (42-75); PLATELET COUNT 281 X10'3 (140-440); RED BLOOD COUNT 3.42 X10'6 (4.70-6.10); RED CELL DISTRIBUTION WIDTH 20.2 % (11.5-14.5); WHITE BLOOD COUNT 9.2 X10'3 (4.5-11.0)
[2024-11-17 05:14] LABS: ALANINE AMINOTRANSFERASE 14 U/L (12-78); ALBUMIN 1.9 G/DL (3.4-5.0); ALBUMIN/GLOBULIN RATIO 0.4 (1.1-1.5); ALKALINE PHOSPHATASE 65 IU/L (46-116); ANION GAP 5 (8-16); ASPARTATE AMINO TRANSFERASE 13 U/L (10-37); BILIRUBIN,TOTAL 0.2 MG/DL (0.1-1.0); BLOOD UREA NITROGEN 16 MG/DL (7-18); BUN/CREATININE RATIO 23.5 (10.0-20.0); CALCIUM 7.9 MG/DL (8.5-10.1); CHLORIDE 108 MMOL/L (99-107); CREATININE 0.68 MG/DL (0.60-1.10); GLUCOSE 82 MG/DL (70-104); MAGNESIUM 1.8 MG/DL (1.5-2.4); POTASSIUM 3.5 MMOL/L (3.5-5.1); SODIUM 142 MMOL/L (135-145); TOTAL CARBON DIOXIDE 29.2 MMOL/L (24-32); TOTAL PROTEIN 6.2 G/DL (6.4-8.2); eCRCL 116 ML/MIN; eGFR > 90 ML/MIN
[2024-11-17 06:00] VITALS: BP 109/59; PULSE 83; RESP 20; TEMP 98.2; O2SAT 92
[2024-11-17 07:01] VITALS: PULSE 72; RESP 18; O2SAT 92
[2024-11-17 10:00] VITALS: BP_SYST 125; BP_SYST 130; BP_DIAS 67; BP_DIAS 72; PULSE 63; PULSE 64
== END 2024-11-17 17:40 | disposition home or self-care (01) | DRG 371 ==
LOC: ER 15:22 → INTOOBSV 19:36 → UNDOADMOB 19:36 → OBSVTOIN 19:36 → ED HOLD 19:36 → SUR 3N 19:36 → ED HOLD 21:14 → SUR 3N 11-16 10:22 → UNDOADMOB 11-16 10:22 → ED HOLD 11-16 10:22
PROVIDERS: ADMIT Surgery Surgical Critical Care; ATTEND Internal Medicine
PROC: 02HV33Z Insertion of Infusion Device into Superior Vena Cava, Percutaneous Approach (ICD-10-PCS; principal; 2024-11-16)
PROC: 4A02X4A Measurement of Cardiac Electrical Activity, Guidance, External Approach (ICD-10-PCS; 2024-11-16)
DX: A04.72 Enterocolitis due to Clostridium difficile, not specified as recurrent (principal); L89.154 Pressure ulcer of sacral region, stage 4; N39.0 Urinary tract infection, site not specified; Z68.41 Body mass index [BMI] 40.0-44.9, adult; E44.1 Mild protein-calorie malnutrition; E86.0 Dehydration; E66.813 Obesity, class 3; I12.9 Hypertensive chronic kidney disease with stage 1 through stage 4 chronic kidney disease, or unspecified chronic kidney disease; I48.91 Unspecified atrial fibrillation; N18.9 Chronic kidney disease, unspecified; D64.9 Anemia, unspecified; G47.30 Sleep apnea, unspecified; I25.2 Old myocardial infarction
CPT/HCPCS: 36415; 36569; 76942; 80048; 80053; 83036; 83605; 83735; 84145; 85008; 85025; 87081; 87324; 87449; 94760; 96365; 99285; A6196; A6253; A6446; A6449; A6590; C1751; G0378; J2185; J2405; J7030; J7040

== ENCOUNTER 2025-05-28 18:54 | Inpatient (IN) | payer OTHER, MEDICARE, MEDICAID ==
[~2025-05-28] VITALS: Ht 188 cm; Wt 158.4 kg
[~2025-05-28 18:54] MED LIST changes: -CEFD300C3 PO; -DOXY-460 PO; +GABA300T26 PO; +POLY119P2 PO; +VITC500T PO
[2025-05-28 19:34] LABS: MEAN PLATELET VOLUME 7.6 FL (7.4-10.4); RED CELL DISTRIBUTION WIDTH 15.9 % (11.5-14.5)
--- NOTE | 2025-05-28 19:39 | RADIOLOGY REPORT ---
CHEST RADIOGRAPH Indication: CP Technique: Single frontal view of the chest was obtained COMPARISON: DI CHEST,SINGLE VIEW on DOS: 11/11/24, DI CHEST,SINGLE VIEW on DOS: 09/21/24, DI CHEST,SINGLE VIEW on DOS: 08/20/24, CT CTA CHEST PE on DOS: 07/26/24, DI CHEST,SINGLE VIEW on DOS: 07/26/24 FINDINGS: Lines and Tubes: None Lungs: Clear Pleura: No effusion. No pneumothorax. Cardiomediastinal contours: Unremarkable Bones: Unremarkable IMPRESSION: 1. No acute disease.
[2025-05-28 19:53] LABS: CREATININE 1.68 MG/DL (0.60-1.10); PRO BRAIN NATRIURETIC PEPTIDE 277 PG/ML (0-125); TOTAL CARBON DIOXIDE 26.4 MMOL/L (24-32); eGFR 40 ML/MIN
--- NOTE | 2025-05-28 21:37 | Physician Documentation ---
History of Present Illness ~ Chief Complaint: Dizziness Stated Complaint: LOW BLOOD PRESSURE Time Seen by MD: 21:17 Primary Medical Doctor: Luis Arboleda MD Source: patient Mode of Arrival: POV Exam Limitations: no limitations HPI 70-year-old male with history of CHF COPD history of [place] with complaints of sudden-onset dizziness associated with hypotension. Patient does have midodrine ordered at 5 mg to be taken with blood pressures under 130 systolic. Patient took the medication continued to be asymptomatic in which case he had family members bring him to the emergency department. Patient took his blood pressure medications today which included metoprolol 25 mg b.i.d., losartan 50 mg daily furosemide 40 mg along with allopurinol and gabapentin. Patient states that he has not needed his midodrine in awhile. Patient does follow up with primary care but isn't aware of who his administrative dietitian is at the [facility] Medication Reconciliation Allergies: Coded Allergies: No Known Allergies (Unverified , 09/21/24) Scheduled Apixaban (Eliquis), 1 TAB PO Q12H, (Reported) Ascorbic Acid* (Vitamin C*), 1 TAB PO DAILY, (Reported) Aspirin (Aspirin EC), 1 TAB PO DAILY, (Reported) Atorvastatin Calcium* (Lipitor*), 1 TABLET PO HS, (Reported) Ferrous Sulfate* (Ferrous Sulfate*), 1 TAB PO DAILY, (Reported) Gabapentin Enacarbil (Horizant), 1 TAB PO DAILY, (Reported) Losartan Potassium (Losartan Potassium), 50 MG PO DAILY Metoprolol Tartrate (Metoprolol Tartrate), 1 TAB PO Q12H, (Reported) Polyethylene Glycol 3350 (Miralax), 17 GM PO DAILY, (Reported) Scheduled PRN Acetaminophen (Tylenol), 2 TAB PO Q8H PRN for pain or fever, (Reported) Bisacodyl (Dulcolax), 1 SUPP RC PRN PRN for constipation, (Reported) Hydrocodone Bit/Acetaminophen 5/325 MG ([place] 5/325 MG), 1 TAB PO Q6H PRN for moderate or severe pain 4-10, (Reported) Magnesium Hydroxide (Milk of Magnesia), 30 ML PO Q24H PRN for constipation, (Reported) Nitroglycerin SL* (Nitrostat SL*), 1 TAB SL Q5MIN PRN for Chest pain Q5min PRNx 3-call MD, (Reported) Past Medical History Past Medical History: Atrial Fibrillation, Hypertension, Myocardial Infarction, Sleep Apnea, Chronic Kidney Disease, Chronic Pain, Cellulitis Past Surgical History: no surgical history Patient History: FHx: tremor MOTHER Alcohol Use: None Drug Use: none Lives with: Family Lives In: Home Review of Systems All Other Systems at this time: Reviewed and Negative Cardiovascular: Reports: see HPI Neurological: Reports: see HPI Physical Exam Vital Signs: RN Vital Signs have been reviewed: Yes, Temperature: 97.9, Source: Oral, Heart Rate: 75, Respiratory Rate: 16, BP: 129/64, Pulse Oximetry: 97 Oxygen Flow Rate: 0 Physical Exam General: Alert, no apparent distress. HEENT: PERRL, EOMI, no injection, moist mucous membranes. Neck: Full range of motion. Respiratory: Lungs clear, no respiratory distress. Chest: No accessory muscle use. Cardiovascular: Regular rate and rhythm, no murmurs. Extremities: Normal range of motion, no deformity. Mild nonpitting edema bilaterally to lower extremities Neurologic: Oriented x4. Psychiatric: Normal mood and affect. Skin: Normal color, warm and dry. No edema, no ecchymosis. Progress Results/Orders Results/Orders Vital Signs 05/28/25 05/28/25 19:01 19:52 Temp 97.9 Pulse 75 Resp 16 B/P (MAP) 129/64 Pulse Ox 97 O2 Flow Rate 0 Laboratory Tests Test 05/28/25 19:11 05/28/25 21:21 White Blood Count 9.6 Red Blood Count 4.85 Hemoglobin 14.3 Hematocrit 43.2 Mean Corpuscular Volume 88.9 Mean Corpuscular Hemoglobin 29.5 Mean Corpuscular Hemoglobin Concent 33.2 Red Cell Distribution Width 15.9 H Platelet Count 211 Mean Platelet Volume 7.6 Neutrophils (%) (Auto) 72.8 Lymphocytes (%) (Auto) 15.0 L Monocytes (%) (Auto) 7.3 Eosinophils (%) (Auto) 4.2 Basophils (%) (Auto) 0.7 Neutrophils # (Auto) 7.0 Lymphocytes # (Auto) 1.4 Monocytes # (Auto) 0.7 Eosinophils # (Auto) 0.4 Basophils # (Auto) 0.1 CBC Comment Sodium Level 142 Potassium Level 4.1 Chloride Level 107 Carbon Dioxide Level 26.4 Anion Gap 9 Blood Urea Nitrogen 26 H Creatinine 1.68 H Estimated GFR/1.73 m2 40 BUN/Creatinine Ratio 15.5 Glucose Level 138 H Calcium Level 8.5 Troponin I High Sensitivity 8 Pro-B-Type Natriuretic Peptide 277 H Albumin 3.6 Chemistry Comments EKG/XRAY/CT/US/VASC/MRI EKG : Additional Comment EKG showing sinus rhythm at 72 beats per minute left vesicular block normal axis no acute ST-T abnormalities Chest X-Ray : Additional Comments CHEST RADIOGRAPH Indication: CP Technique: Single frontal view of the chest was obtained COMPARISON: DI CHEST,SINGLE VIEW on DOS: 11/11/24, DI CHEST,SINGLE VIEW on DOS: 09/21/24, DI CHEST,SINGLE VIEW on DOS: 08/20/24, CT CTA CHEST PE on DOS: 07/26/24, DI CHEST,SINGLE VIEW on DOS: 07/26/24 FINDINGS: Lines and Tubes: None Lungs: Clear Pleura: No effusion. No pneumothorax. Cardiomediastinal contours: Unremarkable Bones: Unremarkable IMPRESSION: 1. No acute disease. Heart Score: Heart Score Response (Comments) Value History Slightly Suspicious 0 EKG Normal 0 Age >65 2 Risk Factors >3 or Hx ASHD 2 Troponin Normal limit 0 Total 4 Medical Decision Making Additional info obtained from: old records Findings 70-year-old with extensive cardiac history as well as chronic kidney disease was experiencing hypotension that was symptomatic causing dizziness earlier today. Patient did take midodrine that helped bring his blood pressure up but with the continued dizziness afterwards he was brought into the emergency department. Patient's BUN creatinine and GFR are lower than baseline with acuity kidney i njury as well as patient's age and risk factors. Patient will receive fluids slowly due to having congestive heart failure and re-evaluated in the morning. Differential Dx:Considerations: Include: CVA, dehydration, dysrhythmia, elect rolyte imbalance, encephalopathy, hypotension, renal failure, other Departure Disposition: ADMITTED INPATIENT Impression: Primary Impression: Bradyarrhythmia Additional Impressions: REJI (acute kidney injury) Dizziness Orthostatic hypotension Condition: Fair Referrals: NO PRIMARY CARE PROVIDER (PCP) Education Educated: Patient Educated regarding: diagnosis, treatment, need for follow up Signature Scribe Signature: No scribe Attestation: The note accurately reflects work and decisions made by me.Rae SERNA 05/28/25 21:38 RAE POWELL NP May 28, 2025 21:37
[2025-05-28] MEDS: normal saline 1000ml 1,000 ML IV SCH (22:10)
[2025-05-28] MEDS ORDERED: ondansetron/PF 4mg/2ml inj IV PRN (23:00)
[2025-05-28] MEDS ORDERED: magnesium Cl slow-release 64mg tablet PO PRN (23:00)
[2025-05-28] MEDS ORDERED: potassium Cl 40MEQ/1/2NS 520ml 520 ML IV PRN (23:00)
[2025-05-28] MEDS ORDERED: magnesium sulf-water 4G/100mL 100 ML IV PRN (23:00)
[2025-05-28] MEDS ORDERED: magnesium sulf-water 2g/50mL 50 ML IV PRN (23:00)
[2025-05-28] MEDS ORDERED: mag hydrox/Alum hydrox/simeth 30ml oral suspension PO PRN (23:00)
[2025-05-28] MEDS ORDERED: potassium Cl 20 mEq SR tablet PO PRN ×2 (23:00)
--- NOTE | 2025-05-28 23:21 | HISTORY AND PHYSICAL-Residence ---
History & Physical Providers to CC Resident Creating Document: JOSÉ LUIS GILLESPIE, RES ~ History of Present Illness Primary Medical Doctor: Luis Arboleda MD Reason for Admit\Complaint: Lightheadedness History of Present Illness 70 year old male with history of hypertension, lymphedema, AFib, class 3 obesity, SUHAS came to the ED with complaints of lightheadedness. He states that he started feeling dizzy at 2:00 p.m. yesterday afternoon, and his blood pressure was 64/50. He has a prescription of midodrine 5 mg to be taken when his systolic blood pressure is below 130. He states that he took his medication but continued to be dizzy. He took his home medications losartan 50 mg, metoprolol 25 mg and Lasix 40 mg yesterday morning as his blood pressure was normal. He states that he was feeling slightly nauseous yesterday but denies vomiting. He states that he has chronic bilateral swelling of lower extremities. He denies falls, confusion. He denies recent change of medications, and isn't aware of who his podiatric medicine doctor is at the [facility]. He states that he has history of SUHAS and discontinued his CPAP a few months ago, but does not have difficulty breathing. He denies PND, orthopnea, burning micturition, frequency, urgency, change in urine output, fever, chills, chest pain, palpitations, shortness of breath, cough, abdominal distention, changes in appetite and weight, pain in legs. Allergies: Coded Allergies: No Known Allergies (Unverified , 09/21/24) Home Medications Home Medications Active Losartan Potassium 50 Mg Tablet 50 Mg PO DAILY 30 Days Reported Vitamin C* (Ascorbic Acid) 500 Mg Tablet 1 Tab PO DAILY 30 Days Horizant (Gabapentin Enacarbil) 300 Mg Tablet.er 1 Tab PO DAILY 30 Days Miralax (Polyethylene Glycol 3350) 17 Gram/Dose Powder 17 Gm PO DAILY dissolve in water Milk of Magnesia (Magnesium Hydroxide) 400 Mg/5 Ml Oral.susp 30 Ml PO Q24H PRN 7 Days Dulcolax (Bisacodyl) 10 Mg Supp.rect 1 Supp RC PRN PRN 10 Days Nitrostat SL* (Nitroglycerin) 0.4 Mg Tablet 1 Tab SL Q5MIN PRN [place] 5/325 MG (Acetaminophen/Hydrocodone Bitart) 5 Mg/325 Mg Tablet 1 Tab PO Q6H PRN Lipitor* (Atorvastatin Calcium) 80 Mg Tablet 1 Tablet PO HS Metoprolol Tartrate 50 Mg Tablet 1 Tab PO Q12H 30 Days Eliquis (Apixaban) 5 Mg Tablet 1 Tab PO Q12H 30 Days Aspirin EC (Aspirin) 81 Mg Tablet.dr 1 Tab PO DAILY 30 Days Ferrous Sulfate* (Ferrous Sulfate) 325 Mg Tablet 1 Tab PO DAILY Tylenol (Acetaminophen) 325 Mg Tablet 2 Tab PO Q8H PRN 5 Days Past Medical History Past Medical History Hypertension AFib CKD Obesity, SUHAS Lymphedema Nasal MRSA lower extremity cellulitis Past Surgical History Surgical History Comment Appendectomy Family History Family History: FHx: tremor MOTHER Past Social History Social History Comment He quit smoking 12 years ago, he used to smoke half pack a day for 50 years He quit drinking alcohol and drugs in 2007 He lives with his family at home He uses a wheelchair Goes to [facility] Alcohol Use: None Drug Use: None Lives with: Family Lives In: Home ROS All Other Systems: Reviewed and Negative ROS Constitutional: Reports dizziness, No fever, chills, weight gain or loss Eyes: No pain, erythema, discharge, blurring of vision ENT: No sore throat, epistaxis, tinnitus Cardiovascular: Reports chronic lower extremity edema, No chest pain, palpitations, syncope, paroxysmal nocturnal dyspnea Respiratory: No Shortness of breath and cough, No hemoptysis. Gastrointestinal: Reports nausea, No Abdominal pain, vomiting, constipation,diarrhea. Normal appetite. No hematemesis or melena. Musculoskeletal: Reports Swelling in bilateral lower legs, no pain Integumentary: No change in skin, hair, nails. No swelling, bruising, abrasions Neurologic: No weakness,No headache, neck pain, numbness or tingling of the extremities, Psychiatric: No delusions, depression, loss of interest in normal activity or change in sleep pattern, hallucinations, suicidal ideations Endocrine: No fatigue, no weakness. polydipsia, polyuria, change in appetite, heat or cold intolerance, sweating, dry skin Hematological: No bleeding, petechiae, bruising Allergies: No asthma or urticaria Cardiovascular: Reports: see HPI Neurological: Reports: see HPI Exam Vitals: Vital Signs Date Time Temp Pulse Resp B/P (MAP) Pulse Ox O2 Delivery O2 Flow Rate FiO2 05/28/25 19:52 05/28/25 19:01 97.9 75 16 97 0 General: Awake , alert, and oriented x4, resting comfortably in the bed, in no acute distress HEENT: Atraumatic, normocephalic, EOMI, anicteric sclera ; pink conjunctiva, moist mucous membranes Neck: Trachea midline. Supple, full range of motion, no JVD Cardiac: Regular rhythm, regular rate with no murmurs all over the precordium. Respiratory: Equal breath sounds bilaterally, no tachypnea, no wheezing ,rub or rales, Chest wall is symmetric and without deformity. Gastrointestinal: Abdomen symmetric, non-distended, soft, non-tender, normal bowel sounds x4 quadrant, normoactive, no hepatosplenomegaly Musculoskeletal: Bilateral pitting pedal edema 1+, Right lower extremity erythema, 4x3 cm healed scar present at the coccyx, no cyanosis Neurological: Speech is clear, alert, and oriented x 4. No motor or sensory deficit, deep tendon reflexes normal, cerebellar intact. Cranial nerves II-XII intact. Skin: Warm and dry Diagnostic Data Last Recorded Lab Results: 05/28/25191005/28/251910 Advance Care Planning Advanced Care plannin - 30 Minutes (Full code) Additional Plan 70-year-old man with history of hypertension, AFib, SUHAS, obesity, lymphedema presented to the ED with complaints of lightheadedness and hypotension. Lightheadedness probably 2/2 hypotension History of Hypertension Blood pressure at home yesterday afternoon was 64/50, patient took midodrine and patient was still symptomatic Patient took his home medications losartan 50 mg, metoprolol tartrate 50 mg and Lasix yesterday morning Vitals are stable on admission, BP-129/64, NV-75 No dizziness or nausea at the moment CBC and coagulation profile are normal Electrolytes are normal EKG shows sinus rhythm, rate 72, left fascicular block with no ST-T elevations BNP is slightly elevated-277 Chest x-ray shows no abnormality Previous echo in October 2024 shows LVEF of 65-70% with mild concentric hypertrophy, with trace mitral, tricuspid and pulmonic regurgitation. Plan: Patient received 1 bolus of NS in the ER Started on NS 75 mL/hour, titrate as needed We will hold his home medications losartan 50 mg and metoprolol tartrate 50 mg q.12h after med reconciliation Follow up echo, to rule out effusion Follow up urinalysis, cortisol, TSH, procalcitonin, lactic acid Continue telemetry monitoring We will consult Cardiology in the a.m. REJI, possibly prerenal Vasomotor nephropathy Creatinine is elevated 1.68, baseline creatinine 0.7 BUN is elevated-26, BUN/Cr is normal Plan: Follow up urine lytes Patient received 1 bolus NS in the ER Started NS at 75 mL/hour, titrate as needed Held his home medication Lasix, we will restart after evaluation in the a.m. Continue Strict Is&Os History of AFib EKG shows sinus rhythm, rate 72, with no ischemic changes We will hold his home medications Eliquis 5 mg p.o. b.i.d. after med reconciliation Morbid obesity SUHAS BMI 43.7 Kg/m2 Patient discontinued CPAP few months ago Hyperlipidemia Follow up lipid panel We will continue atorvastatin 80 mg p.o. h.s. after med reconciliation History of lower extremity cellulitis History of sacral wound Bilateral lower extremity edema 1+ and right lower extremity erythema I spent a total of 18 minutes reviewing various resuscitative measures/ACP with the patient. The patient decided to be full code. Code status: Full code DVT prophylaxis: Eliquis Diet/nutrition: Heart healthy diet Prognosis: Guarded Disposition: Continue medical management, consult Cardiology, PT eval and DC plan Resident MD attestation: The patient note has been reviewed and supervised by senior residents PGY-2/ PGY-3. Patient was seen, examined and discussed with attending physician. José Luis Gillespie MD Internal Medicine resident, PGY-1 I saw and discussed the case with the resident I agree with assessment and plan Date of Service: May 28, 2025 Billing Provider: DEMARCUS BLACKWOOD MD, PREETHI, RES May 28, 2025 23:21 DEMARCUS BLACKWOOD MD May 29, 2025 08:21
[2025-05-28 23:30] LABS: APTT 27 SECONDS (22-32); INR 1.0 INR
[2025-05-28 23:34] LABS: CREATININE 1.56 MG/DL (0.60-1.10); PHOSPHORUS 3.3 MG/DL (2.3-4.5); TOTAL CARBON DIOXIDE 26.4 MMOL/L (24-32); eGFR 44 ML/MIN
[2025-05-29] VITALS (9 sets, daily range): BP systolic 96–167; BP diastolic 32–71; PULSE 57–83; RESP 12–21; TEMP 96.9–98.3; O2SAT 93–99
[2025-05-29] MEDS: normal saline 1000ml 1,000 ML IV SCH (05:45)
[2025-05-29 07:21] LABS: MEAN PLATELET VOLUME 7.7 FL (7.4-10.4); RED CELL DISTRIBUTION WIDTH 16.0 % (11.5-14.5)
[2025-05-29 07:55] LABS: CHOL/HDL RATIO 4.3 (0.00-4.99); CREATININE 1.44 MG/DL (0.60-1.10); LDL CHOLESTEROL 80 MG/DL (50-100); TOTAL CARBON DIOXIDE 30.3 MMOL/L (24-32); eCRCL 54 ML/MIN; eGFR 48 ML/MIN
[2025-05-29] MEDS: K and/or MAG REPLACEMENT MC SCH (08:00)
[2025-05-29] MEDS: docusate sod 100mg capsule PO SCH (08:48)
--- NOTE | 2025-05-29 17:31 | PROGRESS NOTE ---
Daily Progress Note Providers to CC ~ Antibiotic Timeout Antibiotic Ordered?: Yes Subjective No new complaints. Patient is seen resting comfortably. Objective Vital Signs Date Time Temp Pulse Resp B/P (MAP) Pulse Ox O2 Delivery O2 Flow Rate FiO2 05/29/25 11:00 98.3 60 16 105/39 (61) 94 Room Air 05/28/25 19:01 0 Result Diagram: 05/29/25 0623 05/29/25 0623 Awake alert cooperative, obese male, in no acute distress HEENT normocephalic atraumatic extraocular movements intact Neck supple, no JVD Chest: Clear to auscultation, no wheezes crackles rhonchi Heart: Regular rate rhythm, no murmur or gallop rub Abdomen is distended, pendulous, limited exam Extremities 2+ edema Neuro exam nonfocal. Coagulation Studies Laboratory Tests Test 05/28/25 22:05 Prothrombin Time 10.7 SECONDS (9.0-12.0) INR International Normalized Ratio 1.0 INR Activated Partial Thromboplast Time 27 SECONDS (22-32) Coagulation Comments Other Results Medications reviewed Problem\Assessment\Plan 70 years old male with a history of hypertension, AFib, obstructive sleep apnea, lymphedema, presented to the ER for evaluation of lightheadedness and hypotension. #presyncope: Due to hypotension. Blood pressure at home was reported as 64/50. Patient took midodrine and still remains symptomatic. His home medications include losartan 50 mg, metoprolol 50 mg and Lasix. Continue IV fluids. All antihypertensives on hold. #REJI: Due to diuretics. Creatinine is trending down. Continue monitor daily creatinine # hyperlipidemia: Continue Lipitor # AFib: Rate controlled. Continue metoprolol once blood pressure is improved and continue Eliquis # morbid obesity/obstructive sleep apnea: CPAP #code status: Full code Date of Service: May 29, 2025 Billing Provider: SHELIA NUÑEZ MD Common Visit Codes: [id number] INP/OBS CARE(HIGH) SHELIA NUÑEZ MD May 29, 2025 17:31
--- NOTE | 2025-05-29 18:45 | CARDIOLOGY REPORT ---
APPROVED REPORT EXAM: Comprehensive 2D, Doppler, and color-flow Echocardiogram. Patient Location: [address] Heart Rate: 50's bpm Rhythm: SINUS BRADYCARDIA Indications VALVULAR HEART DISEASE HYPERTENSION ATRIAL FIBRILLATION Route Service Manager: NONE Previous echo: 11-12-24 [facility] EF 65-70%, trMR, trTR, mLVH 2D Dimensions RVDd 3.7 cm IVSd 1.0 (0.7-1.1cm) LVDd 4.9 cm PWd 0.9 (0.7-1.1cm) IVSs 1.2 (0.8-1.2cm) LVDs 3.5 (2.5-4.0cm) PWs 1.3 (0.8-1.2cm) LVOT Diameter 2.25 (1.8-2.4cm) LVEF(%) 54.0 (>50%) FS (%) 27.9 % SV 60.2 ml CO 3.3 L/min M-Mode Dimensions Left Atrium(MM) 4.58 (2.5-4.0cm) Aortic Root 3.75 (2.2-3.7cm) Aortic Valve AoV Peak David. 153.3 cm/s AoV VTI 33.2 cm AO Peak GR. 9.4 mmHg AO Mean GR. 5 mmHg LVOT VTI 26.71 cm LVOT Peak David. 112.5 cm/s YAMIL(VTI)/BSA 3.21 cm2/m2 YAMIL (VTI) 3.21 cm2 AV DI 0.80 % Mitral Valve MV E Velocity 97.7 cm/s MV Peak Gr. 5 mmHg MV DECEL TIME 260 ms MV A Velocity 72.3 cm/s MV PHT 72 ms E/A Ratio 1.4 MVA (PHT) 3.06 cm2 MV VMax 108.5 cm/s LEFT VENTRICLE Normal LV size and wall thickness. Overall systolic function is normal. LVEF is 60-65%. RIGHT VENTRICLE RV is mildly dilated with normal function. ATRIA Left atrium is mildly dilated. AORTIC VALVE Trileaflet AV appears mildly sclerotic without stenosis. No insufficiency. MITRAL VALVE Mild MV annular calcification without stenosis. Trace regurgitation. TRICUSPID VALVE TV appears structurally normal with trace regurgitation. PULMONIC VALVE Normal PV without stenosis, physiologic insufficiency. GREAT VESSELS Aortic root is mildly dilated, at 3.75 cm. PERICARDIUM Normal pericardium. No effusion. Other Information Study Quality: Adequate Conclusion Normal LV size and wall thickness. Overall systolic function is normal. LVEF is 60-65%. RV is mildly dilated with normal function. Left atrium is mildly dilated. Trileaflet AV appears mildly sclerotic without stenosis. No insufficiency. Mild MV annular calcification without stenosis. Trace regurgitation. TV appears structurally normal with trace regurgitation. Aortic root is mildly dilated, at 3.75 cm. Normal pericardium. No effusion.
[2025-05-30] MEDS: magnesium hydroxide 30ml (MOM) UD suspension PO PRN (00:58)
[2025-05-30 02:00] VITALS: BP 123/57; PULSE 70; RESP 18; TEMP 98.3; O2SAT 95
--- NOTE | 2025-05-30 05:24 | ELECTROCARDIOGRAPH REPORT ---
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 Shabana Seay Measurements Intervals [place] Rate: 72 P: 11 UT: 205 QRS: -63 QRSD: 100 T: 63 QT: 393 QTc: 431 Interpretive Statements Sinus rhythm Left anterior fascicular block Consider anterior infarct Baseline wander in lead(s) V2 Electronically Signed On 05-30-2025 5:36:[address] Shabana Seay Please click the below link to view image of tracing.
[2025-05-30 06:00] VITALS: BP 126/50; PULSE 54; RESP 13; TEMP 97.6; O2SAT 98
[2025-05-30 07:53] LABS: MEAN PLATELET VOLUME 7.9 FL (7.4-10.4); RED CELL DISTRIBUTION WIDTH 16.0 % (11.5-14.5)
[2025-05-30 07:57] LABS: CREATININE 1.25 MG/DL (0.60-1.10); TOTAL CARBON DIOXIDE 27.6 MMOL/L (24-32); eCRCL 62 ML/MIN; eGFR 57 ML/MIN
[2025-05-30 08:00] VITALS: BP_SYST 137; BP_SYST 164; BP_DIAS 63; BP_DIAS 71; PULSE 67; PULSE 71; RESP 13; O2SAT 98
[2025-05-30 11:00] VITALS: BP 144/58; PULSE 66; RESP 12; TEMP 98.3; O2SAT 96
[2025-05-30] MEDS ORDERED: magnesium hydroxide 30ml (MOM) UD suspension PO PRN (14:30)
[2025-05-30] MEDS ORDERED: HYDROcodone/acetaminophen 5mg/325mg tablet PO PRN (14:30)
[2025-05-30 15:00] VITALS: BP 163/88; PULSE 68; RESP 13; TEMP 97.3; O2SAT 97
--- NOTE | 2025-05-30 15:23 | DISCHARGE SUMMARY ---
Discharge Summary Providers to CC ~ Discharge Summary Admission Diagnosis: HYPOTENSION Hospital Course DATE OF ADMISSION: 05/28/2025 DATE OF DISCHARGE:05/30/2025 Discharge Diagnosis\Comment: Syncope due to hypotension Hypotension due to medications Operations\Procedures: Echocardiogram Consultants: None Complications: None Condition on DC: Stable Changed Medications: Metoprolol Tartrate (Metoprolol Tartrate) 50 Mg Tablet 0.5 TAB PO Q12H for 30 Days, #60 TAB (Changed from: 1 TAB) Continued Medications: Acetaminophen (Tylenol) 325 Mg Tablet 2 TAB PO Q8H PRN for pain or fever for 5 Days, #30 TAB Apixaban (Eliquis) 5 Mg Tablet 1 TAB PO Q12H for 30 Days, #60 TAB 0 Refills Ascorbic Acid* (Vitamin C*) 500 Mg Tablet 1 TAB PO DAILY for 30 Days, #30 TAB Aspirin (Aspirin EC) 81 Mg Tablet.dr 1 TAB PO DAILY for 30 Days, #30 TAB Atorvastatin Calcium* (Lipitor*) 80 Mg Tablet 1 TABLET PO HS, TABLET Bisacodyl (Dulcolax) 10 Mg Supp.rect 1 SUPP RC PRN PRN for constipation for 10 Days, #10 SUPP 0 Refills Ferrous Sulfate* (Ferrous Sulfate*) 325 Mg Tablet 1 TAB PO DAILY, TAB Gabapentin Enacarbil (Horizant) 300 Mg Tablet.er 1 TAB PO DAILY for 30 Days, #60 TAB 0 Refills Hydrocodone Bit/Acetaminophen 5/325 MG ([place] 5/325 MG) 5 Mg/325 Mg Tablet 1 TAB PO Q6H PRN for moderate or severe pain 4-10, TAB Magnesium Hydroxide (Milk of Magnesia) 400 Mg/5 Ml Oral.susp 30 ML PO Q24H PRN for constipation for 7 Days, #70 ML 0 Refills Nitroglycerin SL* (Nitrostat SL*) 0.4 Mg Tablet 1 TAB SL Q5MIN PRN for Chest pain Q5min PRNx3-call MD, #25 TAB Polyethylene Glycol 3350 (Miralax) 17 Gram/Dose Powder 17 GM PO DAILY for constipation, #255 GM 0 Refills dissolve in water Discontinued Medications: Losartan Potassium (Losartan Potassium) 50 Mg Tablet 50 MG PO DAILY for 30 Days, #30 TAB Discharge Summary: Reason for admission: 70 years old male with a history of hypertension, AFib, obstructive sleep apnea, lymphedema, presented to the ER for evaluation of lightheadedness and hypotension. Please refer to admission H&P for further details Hospital course: Patient was admitted on the monitored floor under hospital course as follows. 1. Presyncope due to hypotension: Patient was noted to have a blood pressure of 64/50 at home. He took midodrine and still remains symptomatic. Patient takes losartan 50 mg p.o. daily, metoprolol 50 mg p.o. daily and Lasix at home. These were all discontinued. He was started on IV fluids. At the time of discharge, his metoprolol has been decreased to 25 mg p.o. daily, losartan has been discontinued. He is advised to follow up with his PCP to discuss resuming his Lasix. 2. REJI: Due to vasomotor nephropathy from diuretics. Creatinine trended down. 3. Hyperlipidemia: Continued on Lipitor 4. AFib: Rate controlled. Metoprolol dose was decreased as noted above and patient continued on Eliquis 5. Morbid obesity/obstructive sleep apnea: Continued on CPAP 6. Code status: Patient was kept as a full code Discharge exam: I examined the patient on the day of discharge. Awake alert cooperative, obese male, in no acute distress HEENT normocephalic atraumatic extraocular movements intact Neck supple, no JVD Chest: Clear to auscultation, no wheezes crackles rhonchi Heart: Regular rate rhythm, no murmur or gallop rub Abdomen is distended, pendulous, limited exam Extremities 2+ edema Neuro exam nonfocal. Disposition: Home *Problems/Diagnosis: (1) Syncope Status: Acute Total Time Spent on D/C: > 30 Minutes Date of Service: May 30, 2025 Billing Provider: SHELIA NUÑEZ MD Common Visit Codes: 83853-LER/OBS DISCH DAY >30min SHELIA NUÑEZ MD May 30, 2025 15:23
[2025-05-30] MEDS ORDERED: METO50TA16 PO (15:56)
[2025-05-30] MEDS: aspirin 81mg, enteric-coated 1 TAB TABLET.DR PO SCH (17:20)
[2025-05-31] MEDS ORDERED: polyethylene glycol 3350 17gm powd pack PO SCH (08:00)
== END 2025-05-30 17:42 | disposition home or self-care (01) | DRG 312 ==
LOC: ER 18:54 → ED HOLD 22:58 → PCU 3S 05-29 01:15
PROVIDERS: ADMIT Internal Medicine; ATTEND Internal Medicine
DX: I95.2 Hypotension due to drugs (principal); N17.0 Acute kidney failure with tubular necrosis; Z68.41 Body mass index [BMI] 40.0-44.9, adult; I13.0 Hypertensive heart and chronic kidney disease with heart failure and stage 1 through stage 4 chronic kidney disease, or unspecified chronic kidney disease; G47.33 Obstructive sleep apnea (adult) (pediatric); E78.5 Hyperlipidemia, unspecified; I50.9 Heart failure, unspecified; N18.9 Chronic kidney disease, unspecified; G89.29 Other chronic pain; I49.8 Other specified cardiac arrhythmias; E66.813 Obesity, class 3; I48.91 Unspecified atrial fibrillation; T50.2X5A Adverse effect of carbonic-anhydrase inhibitors, benzothiadiazides and other diuretics, initial encounter; T50.995A Adverse effect of other drugs, medicaments and biological substances, initial encounter; Y92.89 Other specified places as the place of occurrence of the external cause; I25.2 Old myocardial infarction; Z79.899 Other long term (current) drug therapy; Z79.82 Long term (current) use of aspirin; Z87.891 Personal history of nicotine dependence
CPT/HCPCS: 36415; 71045; 80048; 80053; 80061; 83036; 83605; 83735; 83880; 84100; 84145; 84443; 84484; 85025; 85610; 85730; 87081; 93005; 93306; 97161; 97530; 99285; G0378; J7030